=== PATIENT | female | born 1960 | race Caucasian/White ===

== ENCOUNTER → 2020-12-26 16:14 | Outpatient (BNVA) | payer MEDICAID, SELFPAY | PROVIDERS: Visit Provider Nurse Practitioner Psychiatric/Mental Health | DX: F11.99 Opioid use, unspecified with unspecified opioid-induced disorder (principal) | CPT/HCPCS: 99212 ==

== ENCOUNTER → 2021-01-02 15:13 | Outpatient (BNVA) | payer OTHER, SELFPAY | PROVIDERS: PCP Family Medicine; Visit Provider Nurse Practitioner Psychiatric/Mental Health | DX: F11.99 Opioid use, unspecified with unspecified opioid-induced disorder (principal) | CPT/HCPCS: 80305; 99212 ==

== ENCOUNTER → 2021-01-09 09:03 | Outpatient (BNVA) | payer OTHER, SELFPAY | PROVIDERS: PCP Family Medicine; Visit Provider Nurse Practitioner Psychiatric/Mental Health | DX: F11.99 Opioid use, unspecified with unspecified opioid-induced disorder (principal) | CPT/HCPCS: 80305; 99212 ==

== ENCOUNTER → 2021-01-16 09:07 | Outpatient (BNVA) | payer OTHER, SELFPAY | PROVIDERS: PCP Family Medicine; Visit Provider Nurse Practitioner Psychiatric/Mental Health | DX: Z51.81 Encounter for therapeutic drug level monitoring (principal); F11.99 Opioid use, unspecified with unspecified opioid-induced disorder | CPT/HCPCS: 80305; 99212 ==

== ENCOUNTER → 2021-01-30 09:25 | Outpatient (BNVA) | payer OTHER, SELFPAY | PROVIDERS: PCP Family Medicine; Visit Provider Nurse Practitioner Psychiatric/Mental Health | DX: F11.99 Opioid use, unspecified with unspecified opioid-induced disorder (principal) | CPT/HCPCS: 80305; 99212 ==

== ENCOUNTER 2021-02-13 08:48 | Outpatient (REF) | payer OTHER, SELFPAY ==
[2021-02-13 10:22] LABS: Alanine Aminotransferase 16 U/L (0-31); Albumin Level 4.2 g/dL (3.5-5.0); Alkaline Phosphatase 72 U/L (39-117); Anion Gap 12 (12-20); Aspartate Amino Transferase 16 U/L (5-31); Bilirubin Total 0.6 mg/dL (0.0-1.0); Blood Urea Nitrogen 11 mg/dL (9-16); Calcium 9.3 mg/dL (8.4-10.2); Carbon Dioxide 29 mmol/L (22-29); Chloride 106 mmol/L (96-108); Cholesterol 215 mg/dL; Estimated Glomerular Filt Rate > 60; Glucose Fasting 86 mg/dL (60-99); HDL Cholesterol 72 mg/dL; LDL Cholesterol Calculated 131 mg/dl; Potassium 4.7 mmol/L (3.3-5.1); Sodium 142 mmol/L (135-145); Total Protein 6.6 g/dL (6.5-8.0); Triglycerides 63 mg/dL
[2021-02-13 10:32] LABS: TSH reflex Free T4 1.98 uIU/mL (0.32-4.0)
== END 2021-02-13 08:49 | disposition home or self-care (01) ==
LOC: HO.LAB 08:48
PROVIDERS: PCP Family Medicine; Visit Provider Family Medicine
DX: Z00.00 Encounter for general adult medical examination without abnormal findings (principal); F11.99 Opioid use, unspecified with unspecified opioid-induced disorder; K59.03 Drug induced constipation; T40.2X5A Adverse effect of other opioids, initial encounter
CPT/HCPCS: 36415; 80053; 80061; 80305; 84443; 99212

== ENCOUNTER 2021-02-27 08:35 | Outpatient (REF) | payer OTHER, SELFPAY ==
--- NOTE | ~2021-02-27 | MM_ITS ---
EXAMINATION: MM SCREENING DIGITAL BREAST TOMOSYNTHESIS, BILATERAL CLINICAL INFORMATION: Screening. Asymptomatic. Status post left breast lumpectomy and radiation therapy. COMPARISON: Mammography: November 03, 2019 and studies dating back to May 27, 2012 TECHNIQUE: Digital breast tomosynthesis is performed in both the craniocaudal and mediolateral oblique views along with computer-aided detection (CAD). Synthesized 2D images are generated from the tomosynthesis. FINDINGS: There are scattered areas of fibroglandular density (ACR BI-RADS breast composition Category b). No new abnormal dominant mass or suspicious grouping of microcalcifications identified. Architectural distortion is noted within the left breast related to previous lumpectomy and radiation therapy. MM/MM tomosynthesis screening BI IMPRESSION: There are no significant changes from prior study. ASSESSMENT: BI-RADS 2: Benign RECOMMENDATION: Routine annual mammography screening. This patient's information was entered into a reminder system with a target due date for their next mammogram.
== END 2021-02-27 08:36 | disposition home or self-care (01) ==
LOC: HO.MAMMO 08:35
PROVIDERS: PCP Family Medicine; Visit Provider Family Medicine
DX: Z12.31 Encounter for screening mammogram for malignant neoplasm of breast (principal); F11.99 Opioid use, unspecified with unspecified opioid-induced disorder; Z79.899 Other long term (current) drug therapy
CPT/HCPCS: 77063; 77067; 80305; 99212

== ENCOUNTER → 2021-03-12 10:21 | Outpatient (BNVA) | payer OTHER, SELFPAY | PROVIDERS: Visit Provider Nurse Practitioner Psychiatric/Mental Health | DX: Z51.81 Encounter for therapeutic drug level monitoring (principal); F12.90 Cannabis use, unspecified, uncomplicated; F11.90 Opioid use, unspecified, uncomplicated | CPT/HCPCS: 80305; 99211 ==

== ENCOUNTER → 2021-03-27 09:19 | Outpatient (BNVA) | payer OTHER, SELFPAY | PROVIDERS: PCP Family Medicine; Visit Provider Nurse Practitioner Psychiatric/Mental Health | DX: F11.99 Opioid use, unspecified with unspecified opioid-induced disorder (principal); U07.0 Vaping-related disorder; Z51.81 Encounter for therapeutic drug level monitoring | CPT/HCPCS: 80305; 99212 ==

== ENCOUNTER → 2021-04-01 15:04 | Outpatient (BNVA) | payer OTHER, SELFPAY | PROVIDERS: PCP Family Medicine; Referring Provider Family Medicine; Visit Provider Nurse Practitioner Family | DX: Z12.11 Encounter for screening for malignant neoplasm of colon (principal); T40.2X5A Adverse effect of other opioids, initial encounter; K59.03 Drug induced constipation | CPT/HCPCS: 99202 ==

== ENCOUNTER → 2021-04-17 14:13 | Outpatient (BNVA) | payer OTHER, SELFPAY | PROVIDERS: Visit Provider Nurse Practitioner Psychiatric/Mental Health | DX: F11.99 Opioid use, unspecified with unspecified opioid-induced disorder (principal); U07.0 Vaping-related disorder; F17.200 Nicotine dependence, unspecified, uncomplicated; Z96.641 Presence of right artificial hip joint; Z51.81 Encounter for therapeutic drug level monitoring | CPT/HCPCS: 80305; 99212 ==

== ENCOUNTER 2021-05-08 09:48 | Day surgery (SDC) | payer OTHER, SELFPAY ==
[2021-05-02 11:05] VITALS: BMI 26.2
--- NOTE | 2021-05-07 08:59 | HO.ANESPROP2 ---
Documented by User: Leena Brown 05/07/21 09:00 HPI - Anesthesia Eval Consult details Narrative: 61yo F for Colonoscopy suboxone daily PMFSH Active Problems Active Problems: All Active Problems (Updated 05/02/21 @ 11:04 by Katarina Haro) Primary osteoarthritis of right hip (Acute) Anxiety and depression (Acute) Opioid use disorder (Acute) Breast cancer screening by mammogram (Acute) Screening for colon cancer (Acute) Constipation due to opioid therapy (Acute) GERD (gastroesophageal reflux disease) (Acute) Constipation (Acute) Adult general medical exam (Acute) Past Medical History Medical History (Updated 05/02/21 @ 11:04 by Katarina Haro) Anxiety Arthritis Depression GERD (gastroesophageal reflux disease) Opioid abuse Family History Family History Father Colon cancer Mother No problems noted. Paternal Grandmother Breast cancer Paternal Aunt No problems noted. Brother No problems noted. Brother No problems noted. Sister Cervical cancer Son No problems noted. Son No problems noted. Surgical History Surgical History (Updated 05/02/21 @ 11:03 by Katarina Haro) H/O colonoscopy History of lumpectomy of left breast History of right hip replacement History of surgery Ovarian cyst Social History Social History (Updated 03/27/21 @ 09:30 by Yvonne Welch CMA) Housing: House Alcohol intake: current Alcohol intake frequency: a few times a month Patient Tobacco Use Status: Current everyday Tobacco user Tobacco use type: Cigarette e-Cigarette/Vaping Use: Currently Using service: No Current occupational status: unemployed Meds Allergies Allergy/AdvReac Type Severity Reaction Status Date / Time chlorhexidine [CHLORAPREP] Allergy Unknown RASH Verified 04/04/21 12:32 Exam Exam Date and Time: May 07, 2021 0859 Height,Weight and Vital Signs: Height 5 ft 8 in Weight 78.188 kg Assessment and Plan Assessment Anesthesia Assessment: Chart Reviewed Documented by User: Shima Mcdonald MD 05/08/21 11:30 [facility] Past Medical History Medical History (Updated 05/02/21 @ 11:04 by Katarina Haro) Anxiety Arthritis Depression GERD (gastroesophageal reflux disease) Opioid abuse Family History Family History (Reviewed 03/27/21 @ 09:28 by Yvonne Welch [facility]) Father Colon cancer Mother No problems noted. Paternal Grandmother Breast cancer Paternal Aunt No problems noted. Brother No problems noted. Brother No problems noted. Sister Cervical cancer Son No problems noted. Son No problems noted. Surgical History Surgical History (Updated 05/02/21 @ 11:03 by Katarina Haro) H/O colonoscopy History of lumpectomy of left breast History of right hip replacement History of surgery Ovarian cyst History of Problems with Anesthesia: No Social History Social History (Updated 03/27/21 @ 09:30 by Yvonne Welch [facility]) Housing: House Alcohol intake: current Alcohol intake frequency: a few times a month Patient Tobacco Use Status: Current everyday Tobacco user Tobacco use type: Cigarette e-Cigarette/Vaping Use: Currently Using service: No Current occupational status: unemployed Meds Allergies Allergy/AdvReac Type Severity Reaction Status Date / Time chlorhexidine [CHLORAPREP] Allergy Unknown RASH Verified 04/04/21 12:32 Exam Airway Mallampati Class: II TM Dist: >3cm Neck ROM: Full Loose/Missing/Broken Teeth: Yes, Upper and Lower Heart: RRR Lungs: CTA Assessment and Plan Assessment Anesthesia Assessment: Anesthesia Plan Discussed Final Anesthetic Review History of Problems with Anesthesia: No NPO: Yes ASA Class: II Final Preanesthetic Review: Meds/Allgs Chart Reviewed, Consent Obtained/Reviewed and Anes Risks/Benef Reviewed Patient Risk: Low Procedure Risk: Low Anesthetic Plan Anesthetic Plan: MAC: Disposition: Standard PACU
[2021-05-08 10:10] VITALS: BP 110/69; PULSE 57; RESP 16; TEMP 37.2; O2SAT 94
[2021-05-08] MEDS: Lactated Ringers 1,000 ML 100 ML IVCONT (10:26)
--- NOTE | 2021-05-08 11:13 | P.HPSUR_ITS ---
Pre-Procedural Eval Section A Date of Service: 05/08/21 Section B Chief Complaint: screening Details of Present Illness: FH CRC--dad Relevant Family History (Specify if Yes): Yes Relevant Social History: None Present Medications: see Short Stay Collaborative assessment Medical History: Significant History (Anxiety Arthritis Depression GERD (gastroesophageal reflux disease) Opioid abuse) History of Previous Operations: Relevant previous surgery/procedure and date(s) (H/O colonoscopy History of lumpectomy of left breast History of right hip replacement History of surgery Ovarian cyst) Allergies: Allergies Allergy/AdvReac Type Severity Reaction Status Date / Time chlorhexidine [CHLORAPREP] Allergy Unknown RASH Verified 04/04/21 12:32 Review of Systems Sugical H&P ROS: Negative: Constitution, Cardiovascular, Respiratory, Neurologi matti, Psychiatric, Hem-Onc, Allergic/Immunologic, Gastrointestinal, Genitourinary, Musculoskeletal, Integumentary, Endocrine and Eyes/Ears/Nose/Throat Exam Surgical H&P Exam: Normal: HEENT, Normal: Heart, Normal: Lungs, Normal: Extremities, Normal: Abdomen, Normal: Skin and Normal: Neurological Plan Diagnosis/Plan: Unchanged I have reviewed the history and physical and performed a pertinent physical examination on my patient. No changes have occurred unless specified.
--- NOTE | 2021-05-08 11:38 | PM.OP ---
Brief Operative Note Date of Service: 05/08/21 Pre-op diagnosis: colon screening, FH of CRC Post-op diagnosis: same Procedure: see op note Surgeon: Dmitry Sabillon MD Anesthesia: MAC Was an Health Club Attendant used for this Procedure?: No Estimated blood loss (mL): 0 Condition: stable Disposition: PACU
--- NOTE | 2021-05-08 11:38 | W.PM.OPN ---
Operative Note Operative Note Date of Service: 05/08/21 Narrative: Operative Information Procedure Description: Colonoscopy COLONOSCOPY Instrument: Olympus variable stiffness pediatric scope 190L Colonoscopy Monitoring: Vital signs and clinical assessment, continuous EKG monitoring, Pulse oximetry, Carbon Dioxide monitoring and blood pressure monitoring were done throughout the procedure. Colon withdrawal time was 16 minutes. Procedure: The patient was placed in the left lateral decubitis position and pre-procedure medications were administered. After a digital rectal examination of the ano-rectum, the video colonoscope was inserted into the rectum and advanced through the colon to the cecum/TI. The colonoscope was slowly withdrawn in a retrograde panoramic fashion and the colon mucosa was carefully examined including a retroflexed view of the rectum. Findings and interventions are described below. Procedure Difficulty: Findings: Terminal Ileum-normal Cecum:normal Ascending Colon: normal Transverse Colon -normal Descending Colon:normal Sigmoid Colon: few small scattered divertciula Rectum: Retroflexion with small internal hemorrhoids, grade I Anorectum - normal Colon preparation: [place] Bowel Preparation Scale Right colon; 2 Transverse colon: 2 Left colon; 2 (0 = Unprepared colon segment with mucosa not seen due to solid stool that cannot be cleared. 1 = Portion of mucosa of the colon segment seen, but other areas of the colon segment not well seen due to staining, residual stool and/or opaque liquid. 2 = Minor amount of residual staining, small fragments of stool and/or opaque liquid, but mucosa of colon segment seen well. 3 = Entire mucosa of colon segment seen well with no residual staining, small fragments of stool or opaque liquid) Impression and Post Procedure Diagnosis: internal hemorrhoids diverticular disease Plan: High fiber diet leaflet Avoid straining at stool, epsom salts and sitz bath, anusol supps or cream Repeat Colonoscopy in 5 years due to FH of CRC or earlier if clinically indicated Above findings were reviewed with the patient and relevant handouts were provided if indicated.
[2021-05-08 11:42] VITALS: BP 88/53; PULSE 65; RESP 18; TEMP 36.1; O2SAT 95
[2021-05-08 11:57] VITALS: BP 106/64; PULSE 69; RESP 18; TEMP 36.1; O2SAT 97
== END 2021-05-08 12:40 | disposition home or self-care (01) ==
PROVIDERS: PCP Family Medicine; Visit Provider Internal Medicine Gastroenterology
PROC: 0DJD8ZZ Inspection of Lower Intestinal Tract, Via Natural or Artificial Opening Endoscopic (ICD-10-PCS; CPT 45378; principal; 2021-05-08 11:20)
DX: Z12.11 Encounter for screening for malignant neoplasm of colon (principal); Z80.0 Family history of malignant neoplasm of digestive organs; K57.30 Diverticulosis of large intestine without perforation or abscess without bleeding; K64.0 First degree hemorrhoids; K21.9 Gastro-esophageal reflux disease without esophagitis; M16.11 Unilateral primary osteoarthritis, right hip; F11.20 Opioid dependence, uncomplicated; F17.210 Nicotine dependence, cigarettes, uncomplicated; Z79.899 Other long term (current) drug therapy; Z85.3 Personal history of malignant neoplasm of breast
CPT/HCPCS: 45378; 99212

== ENCOUNTER → 2021-05-23 14:30 | Outpatient (BNVA) | payer OTHER, SELFPAY | PROVIDERS: PCP Family Medicine; Visit Provider Nurse Practitioner Family ==

== ENCOUNTER → 2021-06-05 15:06 | Outpatient (BNVA) | payer OTHER, SELFPAY | PROVIDERS: Visit Provider Nurse Practitioner Psychiatric/Mental Health | DX: Z51.81 Encounter for therapeutic drug level monitoring (principal); F11.90 Opioid use, unspecified, uncomplicated | CPT/HCPCS: 80305; 99212 ==

== ENCOUNTER → 2021-07-03 10:41 | Outpatient (BNVA) | payer OTHER, SELFPAY | PROVIDERS: Visit Provider Nurse Practitioner Psychiatric/Mental Health | DX: F11.90 Opioid use, unspecified, uncomplicated (principal) | CPT/HCPCS: 80305; 99212 ==

== ENCOUNTER → 2021-07-25 15:32 | Outpatient (BNVA) | payer OTHER, SELFPAY | PROVIDERS: Visit Provider Nurse Practitioner Family ==

== ENCOUNTER → 2021-07-31 10:32 | Outpatient (BNVA) | payer OTHER, SELFPAY | PROVIDERS: PCP Family Medicine; Visit Provider Nurse Practitioner Psychiatric/Mental Health | DX: F11.99 Opioid use, unspecified with unspecified opioid-induced disorder (principal); K21.9 Gastro-esophageal reflux disease without esophagitis; F41.8 Other specified anxiety disorders; U07.0 Vaping-related disorder; Z88.8 Allergy status to other drugs, medicaments and biological substances; Z51.81 Encounter for therapeutic drug level monitoring | CPT/HCPCS: 80305; 99212 ==

== ENCOUNTER → 2021-09-11 14:26 | Outpatient (BNVA) | payer OTHER, SELFPAY | PROVIDERS: PCP Family Medicine; Visit Provider Nurse Practitioner Psychiatric/Mental Health | DX: F11.20 Opioid dependence, uncomplicated (principal); Z51.81 Encounter for therapeutic drug level monitoring; Z79.899 Other long term (current) drug therapy | CPT/HCPCS: 80305; 99212 ==

== ENCOUNTER → 2021-10-09 09:15 | Outpatient (BNVA) | payer OTHER, SELFPAY | PROVIDERS: PCP Family Medicine; Visit Provider Nurse Practitioner Psychiatric/Mental Health ==

== ENCOUNTER → 2021-10-14 15:21 | Outpatient (BNVA) | payer OTHER, SELFPAY | PROVIDERS: PCP Family Medicine; Referring Provider Family Medicine; Visit Provider Nurse Practitioner Family | DX: K59.03 Drug induced constipation (principal); T40.2X5A Adverse effect of other opioids, initial encounter; K21.9 Gastro-esophageal reflux disease without esophagitis | CPT/HCPCS: 99212 ==

== ENCOUNTER → 2021-11-06 16:04 | Outpatient (BNVA) | payer OTHER, SELFPAY | PROVIDERS: PCP Family Medicine; Visit Provider Nurse Practitioner Psychiatric/Mental Health ==

== ENCOUNTER → 2021-12-04 16:15 | Outpatient (BNVA) | payer OTHER, SELFPAY | PROVIDERS: PCP Family Medicine; Visit Provider Nurse Practitioner Psychiatric/Mental Health ==

== ENCOUNTER 2021-12-09 10:40 | Outpatient (REF) | payer OTHER, SELFPAY | END 2021-12-09 10:41 | disposition home or self-care (01) | LOC: HO.LAB 10:40 | PROVIDERS: Visit Provider Family Medicine | DX: R35.0 Frequency of micturition (principal) | CPT/HCPCS: 87086 ==

== ENCOUNTER 2021-12-09 10:50 | Outpatient (REF) | payer OTHER, SELFPAY ==
[2021-12-09 13:23] LABS: MANUAL DIFF FLAG NO
[2021-12-09 13:26] LABS: Basophils Percent Auto 0.6 % (0-2); Eosinophils Percent Auto 0.6 % (0-4); Hematocrit 42.6 % (37.0-47.0); Hemoglobin 13.9 g/dl (12.0-16.0); Imm Gran Abs Auto 0.01 X10*3/uL (0.00-0.03); Imm Gran Pct Auto 0.2 % (0.0-0.4); Lymphocytes Absolute Auto 1.1 X10*3/uL (1.2-4.9); Lymphocytes Percent Auto 24.4 % (20-40); Mean Corpuscular HGB Conc 32.6 g/dl (31.0-35.0); Mean Corpuscular Hemoglobin 29.6 pg (27.0-33.0); Mean Corpuscular Volume 90.8 fL (80.0-98.0); Mean Platelet Volume 9.1 fL (9.4-12.3); Monocytes Absolute Auto 0.3 X10*3/uL (0.1-1.2); Monocytes Percent Auto 6.3 % (2-11); Neutrophils Absolute Auto 3.2 x10*3/uL (2.0-8.3); Neutrophils Percent Auto 67.9 % (45-73); Platelet Count 319 X10*3/uL (160-400); Red Blood Count 4.69 X10*6/uL (4.20-5.50); Red Cell Distribution Width 12.7 % (11.0-16.0); White Blood Count 4.6 X10*3/uL (4.8-10.8)
[2021-12-09 13:33] LABS: Appearance Urine CLEAR; Color Urine STRAW; Glucose Urine UA NEG (NEG); Leukocyte Esterase Urine NEG (NEG); Nitrite Urine NEG (NEG); Specific Gravity - Urine <= 1.005 (1.005-1.025); Urine Blood NEG (NEG); Urine Ketones NEG (NEG); Urine Protein NEG (NEG-TRACE)
[2021-12-09 13:42] LABS: Alanine Aminotransferase 18 U/L (0-31); Albumin Level 4.5 g/dL (3.5-5.0); Alkaline Phosphatase 69 U/L (39-117); Anion Gap 13 (12-20); Aspartate Amino Transferase 17 U/L (5-31); Bilirubin Total 0.5 mg/dL (0.0-1.0); Blood Urea Nitrogen 10 mg/dL (9-16); Calcium 10.2 mg/dL (8.4-10.2); Carbon Dioxide 30 mmol/L (22-29); Chloride 104 mmol/L (96-108); Estimated Glomerular Filt Rate > 60; Glucose Fasting 99 mg/dL (60-99); Potassium 4.7 mmol/L (3.3-5.1); Sodium 142 mmol/L (135-145); Total Protein 7.2 g/dL (6.5-8.0)
[2021-12-09 13:57] LABS: TSH reflex Free T4 1.86 uIU/mL (0.32-4.0)
== END 2021-12-09 10:51 | disposition home or self-care (01) ==
LOC: HO.WFDLDS 10:50
PROVIDERS: Visit Provider Family Medicine
DX: Z00.00 Encounter for general adult medical examination without abnormal findings (principal); R23.2 Flushing; R35.0 Frequency of micturition
CPT/HCPCS: 36415; 80053; 81003; 84443; 85025

== ENCOUNTER → 2022-01-15 14:56 | Outpatient (BNVA) | payer OTHER, SELFPAY | PROVIDERS: PCP Family Medicine; Visit Provider Nurse Practitioner Psychiatric/Mental Health | DX: F11.20 Opioid dependence, uncomplicated (principal) | CPT/HCPCS: 80305; 99212 ==

== ENCOUNTER → 2022-02-12 14:20 | Outpatient (BNVA) | payer OTHER, SELFPAY | PROVIDERS: PCP Family Medicine; Visit Provider Nurse Practitioner Psychiatric/Mental Health | DX: Z51.81 Encounter for therapeutic drug level monitoring (principal); F11.20 Opioid dependence, uncomplicated | CPT/HCPCS: 80305; 99212 ==

== ENCOUNTER → 2022-03-19 15:51 | Outpatient (BNVA) | payer OTHER, SELFPAY | PROVIDERS: PCP Family Medicine; Visit Provider Nurse Practitioner Psychiatric/Mental Health | DX: Z51.81 Encounter for therapeutic drug level monitoring (principal); F11.20 Opioid dependence, uncomplicated | CPT/HCPCS: 80305; 99212 ==

== ENCOUNTER → 2022-07-27 13:28 | Outpatient (BNVA) | payer OTHER, SELFPAY | PROVIDERS: PCP Family Medicine; Visit Provider Nurse Practitioner Psychiatric/Mental Health | DX: F11.20 Opioid dependence, uncomplicated (principal) | CPT/HCPCS: 80305; 99212 ==

== ENCOUNTER → 2022-09-08 10:56 | Outpatient (BNVA) | payer OTHER, SELFPAY | PROVIDERS: PCP Family Medicine; Visit Provider Nurse Practitioner Psychiatric/Mental Health | DX: F11.20 Opioid dependence, uncomplicated (principal) | CPT/HCPCS: 80305; 99212 ==

== ENCOUNTER → 2022-11-03 10:49 | Outpatient (BNVA) | payer OTHER, SELFPAY | PROVIDERS: PCP Family Medicine; Visit Provider Nurse Practitioner Psychiatric/Mental Health | DX: F11.20 Opioid dependence, uncomplicated (principal) | CPT/HCPCS: 99212 ==

== ENCOUNTER 2022-11-12 08:57 | Outpatient (REF) | payer OTHER, SELFPAY ==
[2022-11-12 09:10] LABS: MANUAL DIFF FLAG NO
[2022-11-12 09:48] LABS: Basophils Percent Auto 0.8 % (0-2); Eosinophils Absolute Auto 0.1 X10*3/uL (0.0-0.4); Eosinophils Percent Auto 2.5 % (0-4); Hemoglobin 13.3 g/dl (12.0-16.0); Imm Gran Abs Auto 0.01 X10*3/uL (0.00-0.03); Imm Gran Pct Auto 0.3 % (0.0-0.4); Lymphocytes Absolute Auto 1.2 X10*3/uL (1.2-4.9); Lymphocytes Percent Auto 31.9 % (20-40); Mean Corpuscular HGB Conc 32.4 g/dl (31.0-35.0); Mean Corpuscular Hemoglobin 29.3 pg (27.0-33.0); Mean Corpuscular Volume 90.3 fL (80.0-98.0); Mean Platelet Volume 8.8 fL (9.4-12.3); Monocytes Absolute Auto 0.3 X10*3/uL (0.1-1.2); Monocytes Percent Auto 7.8 % (2-11); Neutrophils Percent Auto 56.7 % (45-73); Platelet Count 300 X10*3/uL (160-400); Red Blood Count 4.54 X10*6/uL (4.20-5.50); Red Cell Distribution Width 12.7 % (11.0-16.0); White Blood Count 3.6 X10*3/uL (4.8-10.8)
[2022-11-12 10:30] LABS: Appearance Urine Clear; Color Urine Yellow; Glucose Urine UA Negative (Negative); Leukocyte Esterase Urine Negative (Negative); Nitrite Urine Negative (Negative); Urine Blood Negative (Negative); Urine Ketones Negative (Negative); Urine Protein Negative (Neg-Trace)
[2022-11-12 11:11] LABS: Alanine Aminotransferase 25 U/L (0-31); Albumin Level 4.1 g/dL (3.5-5.0); Alkaline Phosphatase 81 U/L (39-117); Anion Gap 14 (12-20); Aspartate Amino Transferase 20 U/L (5-31); Bilirubin Total 0.7 mg/dL (0.0-1.0); Blood Urea Nitrogen 15 mg/dL (9-16); Calcium 9.2 mg/dL (8.4-10.2); Carbon Dioxide 29 mmol/L (22-29); Chloride 106 mmol/L (96-108); Cholesterol 235 mg/dL; Estimated Glomerular Filt Rate > 60; Glucose Fasting 90 mg/dL (60-99); HDL Cholesterol 77 mg/dL; LDL Cholesterol Calculated 141 mg/dl; Potassium 4.7 mmol/L (3.3-5.1); Sodium 144 mmol/L (135-145); TSH reflex Free T4 2.14 uIU/mL (0.32-4.0); Total Protein 6.5 g/dL (6.5-8.0); Triglycerides 87 mg/dL
[2022-11-12 11:41] LABS: Creatinine Urine 199.38 mg/dL
== END 2022-11-12 08:58 | disposition home or self-care (01) ==
LOC: HO.LAB 08:57
PROVIDERS: PCP Family Medicine; Visit Provider Family Medicine
DX: Z00.00 Encounter for general adult medical examination without abnormal findings (principal); I10 Essential (primary) hypertension
CPT/HCPCS: 36415; 80053; 80061; 81003; 82043; 84443; 85025

== ENCOUNTER 2022-11-18 11:35 | Outpatient (REF) | payer OTHER, SELFPAY ==
--- NOTE | ~2022-11-18 | MM_ITS ---
EXAMINATION: MM SCREENING DIGITAL BREAST TOMOSYNTHESIS, BILATERAL CLINICAL INFORMATION: Screening. Asymptomatic. Left IDC status post lumpectomy and radiation, 2011. COMPARISON: Mammography: 02/27/2021, 11/03/2019, 10/28/2018, 10/08/2017, 11/22/2015, 11/09/2014 TECHNIQUE: Digital breast tomosynthesis is performed in both the craniocaudal and mediolateral oblique views along with computer-aided detection (CAD). Synthesized 2D images are generated from the tomosynthesis. FINDINGS: There are scattered areas of fibroglandular density (ACR BI-RADS breast composition Category b). There are no significant masses, abnormal calcifications, or other abnormalities. There are chronic post therapy changes on the left with reduced breast size table scarring. There is no developing density or interval architectural abnormality. No significant changes from prior studies. MM/MM tomosynthesis screening BI IMPRESSION: -No mammographic evidence of malignancy. -Post therapy changes left breast. ASSESSMENT: BI-RADS 2: Benign RECOMMENDATION: Routine annual mammography screening. This patient's information was entered into a reminder system with a target due date for their next mammogram.
== END 2022-11-18 11:36 | disposition home or self-care (01) ==
LOC: HO.MAMMO 11:35
PROVIDERS: PCP Family Medicine; Visit Provider Family Medicine
DX: Z12.31 Encounter for screening mammogram for malignant neoplasm of breast (principal)
CPT/HCPCS: 77063; 77067

== ENCOUNTER → 2022-12-30 10:54 | Outpatient (BNVA) | payer OTHER, SELFPAY | PROVIDERS: PCP Family Medicine; Visit Provider Nurse Practitioner Psychiatric/Mental Health | DX: Z51.81 Encounter for therapeutic drug level monitoring (principal); F11.20 Opioid dependence, uncomplicated | CPT/HCPCS: 99212 ==

== ENCOUNTER → 2023-03-11 11:18 | Outpatient (BNVA) | payer OTHER, SELFPAY | PROVIDERS: PCP Family Medicine; Visit Provider Nurse Practitioner Psychiatric/Mental Health | DX: Z51.81 Encounter for therapeutic drug level monitoring (principal); F11.20 Opioid dependence, uncomplicated | CPT/HCPCS: 99212 ==

== ENCOUNTER 2023-04-26 10:37 | Outpatient (AMB) | payer OTHER, SELFPAY ==
--- NOTE | 2023-04-26 10:43 | A.OFFVIS_ITS ---
Intake Vital Signs 04/26/23 10:48 Height 5 ft 11 in Weight 187 lb 13.341 oz BMI 26.2 BP 118/74 Blood Pressure Location Lt brachial Position Sitting Pulse 78 Intake Visit Reasons: follow up/ post op Intake Note: Silvia presents in office as a est.patient for a colonoscopy screening PT CC: pt reports having constipation pt denies any other GI Issues Vice President Of Customer Service Required: No Accompanied by: Self / Same As Patient Allergies chlorhexidine [CHLORAPREP] Allergy (Unknown, Verified 04/26/23 10:48) RASH HPI follow up/ post op HPI Details LAST VISIT 10/14/2021 1) Constipation due to opioid therapy: ?Code(s): K59.03 - Drug induced constipation; T40.2X5A - Adverse effect of other opioids, initial encounter ?Plan: Patient continues to be constipated.? I will start her on Movantik.? Patient is on Suboxone therapy.? Patient was encouraged to increase fluid intake, exercise and was encouraged to increase fruits and vegetables in her diet. (2) GERD (gastroesophageal reflux disease): ?Code(s): K21.9 - Gastro-esophageal reflux disease without esophagitis ?Qualifiers: ?Esophagitis presence:?esophagitis presence not specified? Qualified Code(s):?K21.9 - Gastro-esophageal reflux disease without esophagitis ?Plan: Occasional acid reflux most likely related to the fact that she is constipated.? Patient also reports that certain food makes her reflux worse.? Patient will avoid dietary triggers.? Avoid late night snacking, upright for 2-3 hours after meals.? Hopefully when patient will be able to move her bowels she will feel better.? We will reassess next visit.? Patient will call me sooner if her symptoms will get worse or if she develops any additional GI concerning symptoms. (3) Constipation: ?Code(s): K59.00 - Constipation, unspecified ?Qualifiers: ?Constipation type:?drug induced constipation? Qualified Code(s):?K59.03 - Drug induced constipation ?Plan: Drug-induced constipation due to patient's Suboxone therapy.? Will start her on Movantik.? Patient will call me in 2 weeks if this not going to be effective.? I will add docusate sodium.? Patient might need to take extra magnesium citrate if this not going to be working for her.? I will see her in 3 months, sooner on as needed basis.? Patient is agreeable to this plan and verbalizes understanding of instructions.? She was given the opportunity to ask questions and all questions answered.? TODAY'S VISIT Patient is here today thinking that she is due for colonoscopy screening. Patient had colonoscopy in May of 2021 and is not due for colonoscopy till May of 2026. Patient had normal colonoscopy, however due to family history of CRC patient should have colonoscopy every 5 years. Patient denies any melena, hematochezia, unintentional weight loss or ribbon like stools. Patient is moving her bowels better now. Patient is exercising every day and drinking plenty fluids. States that only occasionally she is constipated and if she does she takes [id number] medication to help her with that. Patient denies dyspepsia, dysphagia or odynophagia. Occasional acid reflux after drinking coffee in the morning. Patient states that she uses Tums on as needed basis. Patient denies any other GI concerning symptoms. PFSH Medical History Anxiety Arthritis Depression GERD (gastroesophageal reflux disease) Opioid abuse Surgical History H/O colonoscopy History of lumpectomy of left breast History of right hip replacement History of surgery Ovarian cyst Family History Father Colon cancer Mother No problems noted. Paternal Grandmother Breast cancer Paternal Aunt No problems noted. Brother No problems noted. Brother No problems noted. Sister Cervical cancer Son Substance use disorder Son No problems noted. Social History Housing: House Alcohol intake: current Alcohol intake frequency: a few times a month Patient Tobacco Use Status: Never used Tobacco e-Cigarette/Vaping Use: Currently Using Second Hand Smoke Exposure: No service: No Current occupational status: unemployed Current occupational exposures/hazards: No Cognitive needs: No Hearing needs: No Vision needs: No Review of Systems Const Denies weight gain and Denies weight loss ENT Reports no additional complaints, Denies dysphagia and Denies odynophagia Card Reports no additional complaints Resp Reports no additional complaints GI Denies abdominal pain, Denies belching, Denies melena, Denies bloating, Reports constipation, Denies dysphagia, Denies excessive flatus, Denies dyspepsia, Denies heartburn, Denies diarrhea, Denies loose stools, Denies nausea, Denies odynophagia and Denies vomiting Reports no additional complaints Musc Reports no additional complaints Neuro Reports no additional complaints Psych Reports no additional complaints Endo Reports no additional complaints Physical Exam Vital Signs: Last Vital Signs Pulse 78 04/26/23 10:48 BP 118/74 04/26/23 10:48 BMI result Body Mass Index 26.2 Const General: healthy appearing, no acute distress and well developed Nutritional Appearance: well nourished Orientation/consciousness: patient oriented x3 HEENT Head: Yes normal to inspection, Yes normocephalic and Yes atraumatic Face and sinus: Yes normal facial exam Mouth: Normal oral and palatal mucosa present Throat: Yes posterior oropharynx normal, Yes tonsils normal and Yes uvula midline Eyes General: appearance normal, both eyes and all related structures Neck Neck: Yes normal visual inspection, Yes full ROM and Yes trachea midline Thyroid: Thyroid normal Resp Effort & Inspection: normal respiratory effort, able to speak in complete sentences, no tracheal deviation and symmetric chest movement Auscultation: clear to auscultation bilaterally Cardio Rate: regular rate Heart sounds: S1 normal heart sound present and S2 normal heart sound present GI Inspection: Yes normal to inspection and No distended Palpation (GI): Soft to palpation, not firm, nontender and No hepatosplenomegaly present Auscultation: normal bowel sounds General: Yes no CVA tenderness Back/Spine/Pelvis Back: no CVA tenderness Skin General skin exam: elasticity normal, turgor normal and dry skin Neuro General: patient oriented x3 Psych Appearance: grossly normal Mental Status: mental status grossly normal Speech and movement: Normal speech and movement present Affect: normal affect Assessment & Plan Assessment & Plan (1) Constipation: Code(s): K59.00 - Constipation, unspecified Qualifiers: Constipation type: drug induced constipation Qualified Code(s): K59.03 - Drug induced constipation Plan: Continue high-fiber diet. Continue exercise. May use [id number] medications on as needed basis (2) GERD (gastroesophageal reflux disease): Code(s): K21.9 - Gastro-esophageal reflux disease without esophagitis Qualifiers: Esophagitis presence: esophagitis presence not specified Qualified Code(s): K21.9 - Gastro-esophageal reflux disease without esophagitis Plan: Occasional acid reflux, however patient states that usually is after drinking coffee. Patient will decrease the amount of coffee that she is drinking. Can use [id number] Pepcid or on as needed basis. Patient will follow-up with our office on as-needed basis. She is agreeable to this plan and verbalizes understanding of instructions. She was given the opportunity to ask questions and all questions answered. Thank you for allowing me to participate in her care Coding Level of Care Code Est Pt Level 3 (77908) Diagnoses Constipation K59.03 Constipation type: drug induced constipation GERD (gastroesophageal reflux disease) K21.9 Esophagitis presence: esophagitis presence not specified Time Spent (min) 25 Comment 15 minutes spent with patient and additional 10 minutes spent reviewing her records
[2023-04-26 10:48] VITALS: BP 118/74; PULSE 78; BMI 26.2
== END 2023-04-26 11:26 | disposition home or self-care (01) ==
PROVIDERS: PCP Family Medicine; Visit Provider Nurse Practitioner Family
DX: K59.03 Drug induced constipation (principal); K21.9 Gastro-esophageal reflux disease without esophagitis
CPT/HCPCS: 99213

== ENCOUNTER → 2023-04-26 10:37 | Outpatient (BNVA) | payer OTHER, SELFPAY | PROVIDERS: PCP Family Medicine; Visit Provider Nurse Practitioner Family | DX: K59.03 Drug induced constipation (principal); K21.9 Gastro-esophageal reflux disease without esophagitis | CPT/HCPCS: 99212 ==

== ENCOUNTER 2023-04-30 14:21 | Outpatient (AMB) | payer OTHER, SELFPAY ==
--- NOTE | 2023-04-30 14:21 | A.OFFVIS_ITS ---
Intake Vital Signs 04/30/23 14:25 BP 128/82 Blood Pressure Location Lt radial Position Sitting Pulse 74 Pulse Source Pulse Oximeter Pulse Oximetry (%) 95 Oxygen Delivery Method Room Air Intake Visit Reasons: MAT Visit Intake Note: the patient presents for a mat visit Landscaping Specialist Required: No Allergies chlorhexidine [CHLORAPREP] Allergy (Unknown, Verified 04/26/23 10:48) RASH Do you need a note to return to daycare/school/sports/work: No HPI MAT Visit HPI Details Pt presents for OUD treatment follow up Currently being prescribed Suboxone 2mg BID Denies any side effects related to medication Feels better with increase in dose. Sleeping better, less irritable and less restless. PFSH Medical History Anxiety Arthritis Depression GERD (gastroesophageal reflux disease) Opioid abuse Surgical History H/O colonoscopy History of lumpectomy of left breast History of right hip replacement History of surgery Ovarian cyst Family History Father Colon cancer Mother No problems noted. Paternal Grandmother Breast cancer Paternal Aunt No problems noted. Brother No problems noted. Brother No problems noted. Sister Cervical cancer Son Substance use disorder Son No problems noted. Social History Housing: House Alcohol intake: current Alcohol intake frequency: a few times a month Patient Tobacco Use Status: Never used Tobacco e-Cigarette/Vaping Use: Currently Using Second Hand Smoke Exposure: No service: No Current occupational status: unemployed Current occupational exposures/hazards: No Cognitive needs: No Hearing needs: No Vision needs: No Review of Systems Const Reports as per HPI and Reports no additional complaints Physical Exam Vital Signs: Last Vital Signs Pulse 74 04/30/23 14:25 BP 128/82 04/30/23 14:25 Pulse Ox 95 04/30/23 14:25 Oxygen Delivery Method Room Air 04/30/23 14:25 Const General: cooperative, healthy appearing, comfortable, no acute distress, well developed, alert, awake and well groomed Nutritional Appearance: average body habitus and well nourished Orientation/consciousness: patient oriented x3 Limitations: no limitations Neuro General: patient oriented x3 Psych Appearance: grossly normal Mental Status: mental status grossly normal Speech and movement: Normal speech and movement present Affect: normal affect Attitude: cooperative Thought process: Normal thought process present Insight: Good insight present (Psych) Judgement: Good judgement present (Psych) Assessment & Plan Assessment & Plan (1) Opioid dependence: Code(s): F11.20 - Opioid dependence, uncomplicated Plan: * continue suboxone at current dose * follow up 2 months Coding Level of Care Code Est Pt Level 3 (18995) Diagnoses Opioid dependence F11.20
[2023-04-30 14:25] VITALS: BP 128/82; PULSE 74; O2SAT 95
== END 2023-04-30 14:46 | disposition home or self-care (01) ==
LOC: HO.HCC 14:21
PROVIDERS: PCP Family Medicine; Visit Provider Nurse Practitioner Psychiatric/Mental Health
DX: F11.20 Opioid dependence, uncomplicated (principal)
CPT/HCPCS: 99213

== ENCOUNTER → 2023-04-30 14:21 | Outpatient (BNVA) | payer OTHER, SELFPAY | PROVIDERS: PCP Family Medicine; Visit Provider Nurse Practitioner Psychiatric/Mental Health | DX: Z51.81 Encounter for therapeutic drug level monitoring (principal); F11.20 Opioid dependence, uncomplicated | CPT/HCPCS: 99212 ==

== ENCOUNTER 2023-05-18 09:46 | Outpatient (AMB) | payer OTHER, SELFPAY ==
--- NOTE | 2023-05-18 09:55 | A.OFFPC_ITS ---
Vital Signs 05/18/23 09:56 Height 5 ft 11 in Weight 187 lb BMI 26.1 BP 128/68 Blood Pressure Location Lt brachial Position Sitting Pulse 83 Pulse Source Pulse Oximeter Pulse Oximetry (%) 98 Oxygen Delivery Method Room Air Intake Visit Reasons: f/u anxiety/depression Intake Note: Patient is here to follow up on axiety and depression. Allergies chlorhexidine [CHLORAPREP] Allergy (Unknown, Verified 05/18/23 09:58) RASH Medication List - Last Reconciled 05/18/23 by Bj Esqueda MD aripiprazole 5 mg PO BEDTIME 30 days buprenorphine-naloxone 2-0.5 mg (Suboxone) 1 film sublingual BID clonazepam 2 mg (2 x 1 mg) PO DAILY 28 days COVID-19 antigen test ([facility] COVID-19 Ag Self Test kit) As directed docusate sodium 100 mg PO DAILY naloxone 4 mg/actuation (Narcan) 4 mg intranasal Q2M PRN naproxen 500 mg PO Q12H venlafaxine 100 mg PO BID Tobacco use date assessed: 05/18/23 Dental Screening Dental Screen Date: 05/18/23 Did you have a dental visit in the last 12 months?: Yes Did you have a dental problem in the last 6 months where you did not have access to dental care?: No Was dental information given to patient?: No HPI f/u anxiety/depression HPI Details 63 y/o female presents to f/u anxiety/depression. Followed by Naomi Vaz. Currently prescribed Suboxone 2mg b.i.d. She had felt better with increase in dose. Has been sleeping better, less irritable. Labs were drawn 11/12/22. Reviewed labs with pt. Triglycerides 87. TC 235. LDL 141. HDL 77. She notes she does get her exercise. [facility] Medical History Anxiety Arthritis Depression GERD (gastroesophageal reflux disease) Opioid abuse Surgical History H/O colonoscopy History of lumpectomy of left breast History of right hip replacement History of surgery Ovarian cyst Family History Father Colon cancer Mother No problems noted. Paternal Grandmother Breast cancer Paternal Aunt No problems noted. Brother No problems noted. Brother No problems noted. Sister Cervical cancer Son Substance use disorder Son No problems noted. Social History Housing: House Alcohol intake: current Alcohol intake frequency: a few times a month Patient Tobacco Use Status: Never used Tobacco e-Cigarette/Vaping Use: Currently Using Second Hand Smoke Exposure: No service: No Current occupational status: unemployed Current occupational exposures/hazards: No Cognitive needs: No Hearing needs: No Vision needs: No Questionnaire PHQ-9 Over the last 2 weeks, how often have you been bothered by any of the following problems? 1. Little interest or pleasure in doing things: not at all 2. Feeling down, depressed, or hopeless: not at all 3. Trouble falling or staying asleep, or sleeping too much: not at all 4. Feeling tired or having little energy: not at all 5. Poor appetite or overeating: not at all 6. Feeling bad about yourself - or that you are a failure or have let yourself or your family down: several days 7. Trouble concentrating on things, such as reading the newspaper or watching television: several days 8. Moving or speaking so slowly that other people could have noticed. Or the opposite - being so fidgety or restless that you have been moving around a lot more than usual: not at all 9. Thoughts that you would be better off or of hurting yourself in some way: not at all Total score: 2 Depression Screening Interpretation: Negative [id number] - PHQ-9 Billing: Yes Source: Developed by Drs. Maverick Mercedes, Rosi Desai, Manny Cruz and colleagues, with an educational adriane from [employer]. Thrive Questionnaire Date Thrive assessed: 11/02/22 AYUSH-7 AMB Questionnaire AYUSH-7 Date AYUSH - 7 assessed: 11/02/22 Feeling nervous, anxious, or on edge: 1 = Several days Not being able to stop or control worryin = Several days Worrying too much about different things: 1 = Several days Trouble relaxin = Several days Being so restless that it is hard to sit still: 0 = Not at all Becoming easily annoyed or irritable: 0 = Not at all Feeling afraid as if something awful might happen: 1 = Several days Total AYUSH-7 score (0-4 normal; 5-9 mild; 10-14 moderate; 15-21 severe): 5 Source: Developed by Drs. Maverick Mercedes, Rosi Desai, Manny Cruz and colleagues, with an educational adriane from [employer]. AYUSH-7 Assessment Billing AYUSH-7 Assessment Tool: AYUSH-7 Assessment [id number] Review of Systems Const Denies chills, Denies fatigue, Denies fever(s), Denies headache(s) and Denies weakness ENT Denies dizziness and Denies headache(s) Card Denies chest pain, Denies lightheadedness, Denies dyspnea and Denies other (Palpitations) Resp Denies cough, Denies dyspnea, Denies wheezing and Denies other ( shortness of breath) Musc Denies numbness and Denies tingling Neuro Denies dizziness, Denies headache(s), Denies numbness, Denies tingling, Denies paresthesias and Denies weakness Psych Reports anxiety and Reports depression Endo Denies fatigue Aller/Immun Denies wheezing Physical exam (Primary Care) Vital Signs: Last Vital Signs Pulse 83 05/18/23 09:56 BP 128/68 05/18/23 09:56 Pulse Ox 98 05/18/23 09:56 Oxygen Delivery Method Room Air 05/18/23 09:56 BMI result Body Mass Index 26.1 Tobacco/Smoking Status: Tobacco use Status Tobacco use date assessed 05/18/23 05/18/23 10:05 Patient Tobacco Use Status Never used Tobacco 05/18/23 10:05 Tobacco use type 04/22/23 14:41 e-Cigarette/Vaping Use Currently Using 05/18/23 10:05 PHQ-9: PHQ-9 Score PHQ-9: Total score 2 05/18/23 10:26 Depression Screening Interpretation: Negative Thrive Assessment: Date of Thrive Assessment Date Thrive assessed 11/02/22 05/18/23 10:05 Const General: no acute distress and well developed Nutritional Appearance: well nourished Orientation/consciousness: patient oriented x3 HENMT Head: Yes normocephalic and Yes atraumatic Eyes General: appearance normal, both eyes and all related structures Pupils: Equal, round and reactive pupils present EOM: EOMs intact bilaterally Resp Effort & Inspection: normal respiratory effort Auscultation: clear to auscultation bilaterally Cardio Rate: regular rate Rhythm: regular rhythm Heart sounds: S1 normal heart sound present, S2 normal heart sound present, no gallops, no murmurs and no rubs Neuro General: patient oriented x3 and gait normal Cranial nerves: Yes Equal, round and reactive pupils present Psych Affect: normal affect Assessment and Plan Assessment & Plan (1) Anxiety and depression: Code(s): F41.9 - Anxiety disorder, unspecified; F32.9 - Major depressive disorder, single episode, unspecified Plan: Anxiety and depression are well controlled today on current regimen Of Abilify, venlafaxine and clonazepam No medication changes are recommended today. I advised her to bring her pill bottle to her next visit for a count Will also check urine drug screen at that time - she is on buprenorphine which will be an expected value as well as her clonazepam. (2) Opioid dependence: Code(s): F11.20 - Opioid dependence, uncomplicated Plan: Followed by Naomi Vaz Continue buprenorphine therapy and [place] [facility] [place] [facility] [place]3) Hypercholesterolemia: Code(s): E78.00 - Pure hypercholesterolemia, unspecified Plan: HDL is desirably high and ratios are good Encouraged a diet lower in saturated fats and cholesterol but not starting a medication today. Coding Level of Care Code Est Pt Level 3 (16910) Diagnoses Anxiety and depression F41.9; F32.9 Opioid dependence F11.20 Hypercholesterolemia E78.00 Additional Codes AYUSH-7 Assessment Billing - AYUSH-7 Assessment Tool: AYUSH-7 Assessment [id number] ([id number])
[2023-05-18 09:56] VITALS: BP 128/68; PULSE 83; O2SAT 98; BMI 26.1
== END 2023-05-18 10:37 | disposition home or self-care (01) ==
PROVIDERS: PCP Family Medicine; Visit Provider Family Medicine
DX: F41.9 Anxiety disorder, unspecified (principal); F32.9 Major depressive disorder, single episode, unspecified; F11.20 Opioid dependence, uncomplicated; E78.00 Pure hypercholesterolemia, unspecified
CPT/HCPCS: 99213

== ENCOUNTER 2023-06-29 08:54 | Outpatient (AMB) | payer OTHER, SELFPAY ==
--- NOTE | 2023-06-29 08:55 | A.OFFVIS_ITS ---
Intake Vital Signs 06/29/23 09:04 BP 126/82 Blood Pressure Location Lt radial Position Sitting Pulse 92 Pulse Source Pulse Oximeter Pulse Oximetry (%) 96 Oxygen Delivery Method Room Air Intake Visit Reasons: MAT Visit Intake Note: the patient presents for a mat visit Head Athletic Trainer Required: No Allergies chlorhexidine [CHLORAPREP] Allergy (Unknown, Verified 06/29/23 09:01) RASH Do you need a note to return to daycare/school/sports/work: No HPI MAT Visit HPI Details Pt presents for OUD treatment follow up Currently being prescribed SUboxone 2mg BID Denies any side effects related to medication Tolerating dose Discussed plans to move to [place] within the next year [facility] Medical History Anxiety Arthritis Depression GERD (gastroesophageal reflux disease) Opioid abuse Surgical History H/O colonoscopy History of lumpectomy of left breast History of right hip replacement History of surgery Ovarian cyst Family History Father Colon cancer Mother No problems noted. Paternal Grandmother Breast cancer Paternal Aunt No problems noted. Brother No problems noted. Brother No problems noted. Sister Cervical cancer Son Substance use disorder Son No problems noted. Social History Housing: House Alcohol intake: current Alcohol intake frequency: a few times a month Patient Tobacco Use Status: Never used Tobacco e-Cigarette/Vaping Use: Currently Using Second Hand Smoke Exposure: No service: No Current occupational status: unemployed Current occupational exposures/hazards: No Cognitive needs: No Hearing needs: No Vision needs: No Review of Systems Const Reports as per HPI and Reports no additional complaints Physical Exam Vital Signs: Last Vital Signs Pulse 92 06/29/23 09:04 BP 126/82 06/29/23 09:04 Pulse Ox 96 06/29/23 09:04 Oxygen Delivery Method Room Air 06/29/23 09:04 Const General: cooperative, healthy appearing, comfortable, no acute distress, well developed, alert, awake and well groomed Nutritional Appearance: average body habitus and well nourished Orientation/consciousness: patient oriented x3 Limitations: no limitations Neuro General: patient oriented x3 Psych Appearance: grossly normal Mental Status: mental status grossly normal Speech and movement: Normal speech and movement present Affect: normal affect Attitude: cooperative Thought process: Normal thought process present Insight: Good insight present (Psych) Judgement: Good judgement present (Psych) Assessment & Plan Assessment & Plan (1) Opioid dependence: Code(s): F11.20 - Opioid dependence, uncomplicated Qualifiers: Complication of substance-induced condition: uncomplicated Plan: * continue suboxone at current dose * follow up 2 months Medications: Refilled buprenorphine-naloxone 2-0.5 mg (Suboxone) 1 film sublingual BID 60 ea 1RF Coding Level of Care Code Est Pt Level 3 (54687) Diagnoses Opioid dependence F11.20 Complication of substance-induced condition: uncomplicated
[2023-06-29 09:04] VITALS: BP 126/82; PULSE 92; O2SAT 96
== END 2023-06-29 09:21 | disposition home or self-care (01) ==
LOC: HO.HCC 08:54
PROVIDERS: PCP Family Medicine; Visit Provider Nurse Practitioner Psychiatric/Mental Health
DX: F11.20 Opioid dependence, uncomplicated (principal)
CPT/HCPCS: 99213

== ENCOUNTER → 2023-06-29 08:54 | Outpatient (BNVA) | payer OTHER, SELFPAY | PROVIDERS: PCP Family Medicine; Visit Provider Nurse Practitioner Psychiatric/Mental Health | DX: F11.20 Opioid dependence, uncomplicated (principal); U07.0 Vaping-related disorder; Z51.81 Encounter for therapeutic drug level monitoring; Z79.899 Other long term (current) drug therapy | CPT/HCPCS: 99212 ==

== ENCOUNTER 2023-08-25 14:52 | Outpatient (AMB) | payer OTHER, SELFPAY ==
--- NOTE | 2023-08-25 14:54 | MHC.OFFVIS ---
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 Paternal Grandmother Breast cancer Paternal Aunt No problems noted. Brother No problems noted. Brother No problems noted. Sister Cervical cancer Son Substance use disorder Son No problems noted. Housing: House Alcohol intake: current Alcohol intake frequency: a few times a month Patient Tobacco Use Status: Never used Tobacco e-Cigarette/Vaping Use: Currently Using Second Hand Smoke Exposure: No service: No Current occupational status: unemployed Current occupational exposures/hazards: No Cognitive needs: No Hearing needs: No Vision needs: No Review of Systems Const Reports as per HPI and Reports no additional complaints Physical Exam Vital Signs: Last Vital Signs Pulse 70 08/25/23 15:03 BP 130/78 08/25/23 15:03 Pulse Ox 97 08/25/23 15:03 Oxygen Delivery Method Room Air 08/25/23 15:03 Const General: cooperative, healthy appearing, comfortable, no acute distress, well developed, alert, awake and well groomed Nutritional Appearance: average body habitus and well nourished Orientation/consciousness: patient oriented x3 Limitations: no limitations Neuro General: patient oriented x3 Psych Appearance: grossly normal Mental Status: mental status grossly normal Speech and movement: Normal speech and movement present Affect: normal affect Attitude: cooperative Thought process: Normal thought process present Insight: Good insight present (Psych) Judgement: Good judgement present (Psych) Assessment & Plan Assessment & Plan (1) Opioid dependence: Code(s): F11.20 - Opioid dependence, uncomplicated Qualifiers: Complication of substance-induced condition: uncomplicated Plan: continue suboxone at current dose follow up 2 months Coding Level of Care Code Est Pt Level 3 (69696) Diagnoses Opioid dependence F11.20 Complication of substance-induced condition: uncomplicated
[2023-08-25 15:03] VITALS: BP 130/78; PULSE 70; O2SAT 97
== END 2023-08-25 15:57 | disposition home or self-care (01) ==
PROVIDERS: PCP Family Medicine; Visit Provider Nurse Practitioner Psychiatric/Mental Health
DX: F11.20 Opioid dependence, uncomplicated (principal)
CPT/HCPCS: 99213

== ENCOUNTER → 2023-08-25 14:52 | Outpatient (BNVA) | payer OTHER, SELFPAY | PROVIDERS: PCP Family Medicine; Visit Provider Nurse Practitioner Psychiatric/Mental Health | DX: F11.20 Opioid dependence, uncomplicated (principal); Z51.81 Encounter for therapeutic drug level monitoring; Z79.899 Other long term (current) drug therapy | CPT/HCPCS: 99212 ==

== ENCOUNTER 2023-10-01 14:20 | Outpatient (AMB) | payer OTHER, SELFPAY ==
--- NOTE | 2023-10-01 14:30 | MHC.PC.OV ---
Vital Signs 10/01/23 14:31 Height 5 ft 11 in BMI Reason not done Patient refused/unable BP 128/76 Blood Pressure Location Lt brachial Position Sitting Pulse 67 Pulse Source Pulse Oximeter Pulse Oximetry (%) 100 Oxygen Delivery Method Room Air Intake Visit Reasons: Follow up anxiety Intake Note: Patient is here to follow up on anxiety. Allergies chlorhexidine [CHLORAPREP] Allergy (Unknown, Verified 10/01/23 14:35) RASH Tobacco use date assessed: 10/01/23 HPI Follow up anxiety HPI Details 63 y/o female presents to f/u anxiety and depression. Pt seemed well controlled last office visit and no med changes were made. On Abilify, venlafaxine and clonazepam. AYUSH-7 score 11 today, PHQ-9 5. She feels a bit less stable regarding her anxiety. She states she has not been in contact with her therapist in awhile. [facility] Medical History Anxiety Arthritis Depression GERD (gastroesophageal reflux disease) Opioid abuse Surgical History H/O colonoscopy History of lumpectomy of left breast History of right hip replacement History of surgery Ovarian cyst Family History Father Colon cancer Mother No problems noted. Paternal Grandmother Breast cancer Paternal Aunt No problems noted. Brother No problems noted. Brother No problems noted. Sister Cervical cancer Son Substance use disorder Son No problems noted. Social History Housing: House Alcohol intake: current Alcohol intake frequency: a few times a month Patient Tobacco Use Status: Never used Tobacco e-Cigarette/Vaping Use: Currently Using Second Hand Smoke Exposure: No service: No Current occupational status: unemployed Current occupational exposures/hazards: No Cognitive needs: No Hearing needs: No Vision needs: No Questionnaire PHQ-9 Over the last 2 weeks, how often have you been bothered by any of the following problems? 1. Little interest or pleasure in doing things: several days 2. Feeling down, depressed, or hopeless: several days 3. Trouble falling or staying asleep, or sleeping too much: not at all 4. Feeling tired or having little energy: not at all 5. Poor appetite or overeating: not at all 6. Feeling bad about yourself - or that you are a failure or have let yourself or your family down: several days 7. Trouble concentrating on things, such as reading the newspaper or watching television: several days 8. Moving or speaking so slowly that other people could have noticed. Or the opposite - being so fidgety or restless that you have been moving around a lot more than usual: several days 9. Thoughts that you would be better off or of hurting yourself in some way: not at all Total score: 5 Source: Developed by Drs. Maverick Mercedes, Rosi Desai, Manny Cruz and colleagues, with an educational adriane from [employer]. Thrive Questionnaire Date Thrive assessed: 11/02/22 AYUSH-7 AMB Questionnaire AYUSH-7 Date AYUSH - 7 assessed: 11/04/22 Feeling nervous, anxious, or on edge: 3 = Nearly every day Not being able to stop or control worryin = Nearly every day Worrying too much about different things: 3 = Nearly every day Trouble relaxin = Several days Being so restless that it is hard to sit still: 0 = Not at all Becoming easily annoyed or irritable: 0 = Not at all Feeling afraid as if something awful might happen: 1 = Several days Total AYUSH-7 score (0-4 normal; 5-9 mild; 10-14 moderate; 15-21 severe): 11 Source: Developed by Drs. Maverick Mercedes, Rosi Desai, Manny Cruz and colleagues, with an educational adriane from [employer]. Review of Systems Const Denies chills, Denies fatigue, Denies fever(s), Denies headache(s) and Denies weakness ENT Denies dizziness and Denies headache(s) Card Denies chest pain, Denies lightheadedness, Denies dyspnea and Denies other (Palpitations) Resp Denies cough, Denies dyspnea, Denies wheezing and Denies other ( shortness of breath) Musc Denies numbness and Denies tingling Neuro Denies dizziness, Denies headache(s), Denies numbness, Denies tingling, Denies paresthesias and Denies weakness Psych Reports anxiety and Denies depression Endo Denies fatigue Aller/Immun Denies wheezing Physical exam (Primary Care) Vital Signs: Last Vital Signs Pulse 67 10/01/23 14:31 BP 128/76 10/01/23 14:31 Pulse Ox 100 10/01/23 14:31 Oxygen Delivery Method Room Air 10/01/23 14:31 Tobacco/Smoking Status: Tobacco use Status Tobacco use date assessed 10/01/23 10/01/23 14:43 Patient Tobacco Use Status Never used Tobacco 10/01/23 14:43 Tobacco use type 04/22/23 14:41 e-Cigarette/Vaping Use Currently Using 10/01/23 14:43 PHQ-9: PHQ-9 Score PHQ-9: Total score 5 10/01/23 15:07 Thrive Assessment: Date of Thrive Assessment Date Thrive assessed 11/02/22 10/01/23 14:43 Const General: no acute distress and well developed Nutritional Appearance: well nourished Orientation/consciousness: patient oriented x3 [facility] Head: Yes normocephalic and Yes atraumatic Eyes General: appearance normal, both eyes and all related structures Pupils: Equal, round and reactive pupils present EOM: EOMs intact bilaterally Resp Effort & Inspection: normal respiratory effort Auscultation: clear to auscultation bilaterally Cardio Rate: regular rate Rhythm: regular rhythm Heart sounds: S1 normal heart sound present, S2 normal heart sound present, no gallops, no murmurs and no rubs Neuro General: patient oriented x3 and gait normal Cranial nerves: Yes Equal, round and reactive pupils present Psych Affect: Anxious affect present Assessment and Plan Assessment & Plan (1) Anxiety and depression: Code(s): F41.9 - Anxiety disorder, unspecified; F32.9 - Major depressive disorder, single episode, unspecified Plan: Somewhat?worsened?anxiety. She?has?not?been?in?contact?with?her?therapist?and?while?and?I?encouraged?her?to?reach?out?to?her?therapist?to?resume?therapy. She?is?on?3?medications?for?anxiety. We?discussed?holding?off?on?adding?another?although?could?consider?buspirone?if?worsened?at?follow-up. Advised?her?to?talk?to?her?therapist?about?referral?to?Psychiatry?as?she?is?on?numerous?medications?for?anxiety. Checking?urine?drug?screen?today. Patient?seems?to?have?run?out?early?on?her?aripiprazole.??This?is?a?non?controlled?substance?but?can?cause?some?drowsiness.??There?is?some?concern?that?her?son?may?be?accessing?her?medications. Advised?her?to?keep?all?of?her?medications?sequestered?away?from?others.??Patient?agrees (2) Opioid dependence: Code(s): F11.20 - Opioid dependence, uncomplicated Qualifiers: Complication of substance-induced condition: uncomplicated Plan: Followed?at?[facility] Orders: Orders Benzodiazepine,GC/MS Urine Today F11.99 - Opioid use, unspecified with unspecified opioid-induced disorder, F32.9 - Major depressive disorder, single episode, unspecified, F41.9 - Anxiety disorder, unspecified Drug Screen Urine Today F11.99 - Opioid use, unspecified with unspecified opioid-induced disorder, F32.9 - Major depressive disorder, single episode, unspecified, F41.9 - Anxiety disorder, unspecified Medications: Changed From aripiprazole 5 mg PO BEDTIME 30 days 30 tabs 1RF To aripiprazole 5 mg PO BEDTIME 90 days 90 tabs 2RF Refilled aripiprazole 5 mg PO BEDTIME 30 days 30 tabs 1RF Coding Level of Care Code Est Pt Level 3 (02144) Diagnoses Anxiety and depression F41.9; F32.9 Opioid dependence F11.20 Complication of substance-induced condition: uncomplicated
[2023-10-01 14:31] VITALS: BP 128/76; PULSE 67; O2SAT 100
== END 2023-10-01 15:38 | disposition home or self-care (01) ==
PROVIDERS: PCP Family Medicine; Visit Provider Family Medicine
DX: F32.9 Major depressive disorder, single episode, unspecified (principal); F41.9 Anxiety disorder, unspecified; F11.20 Opioid dependence, uncomplicated
CPT/HCPCS: 99213

== ENCOUNTER 2023-10-01 15:19 | Outpatient (REF) | payer OTHER, SELFPAY ==
[2023-10-01 18:30] LABS: Amphetamine Screen Urine Not Detected (Not Detect); Barbiturates, Urine Not Detected (Not Detect); Benzodiazepines Screen Urine Not Detected (Not Detect); Cannabinoid Screen Urine Not Detected (Not Detect); Cocaine Screen Urine Not Detected (Not Detect); Fentanyl, urine Not Detected (Not Detect); Opiate Screen Urine Not Detected (Not Detect); Phencyclidine Screen Urine Not Detected (Not Detect)
== END 2023-10-01 15:20 | disposition home or self-care (01) ==
LOC: HO.LAB 15:19
PROVIDERS: Visit Provider Family Medicine
DX: F11.20 Opioid dependence, uncomplicated (principal); F41.9 Anxiety disorder, unspecified; F32.9 Major depressive disorder, single episode, unspecified
CPT/HCPCS: 80307

== ENCOUNTER 2023-10-22 09:59 | Outpatient (AMB) | payer OTHER, SELFPAY ==
--- NOTE | 2023-10-22 10:02 | MHC.AM.SUB ---
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 Allergies chlorhexidine [CHLORAPREP] Allergy (Unknown, Verified 10/22/23 10:02) RASH Do you need a note to return to daycare/school/sports/work: No HPI mat visit HPI Details Pt presents follow up Currently being prescribed Suboxone 2mg BID Denies any side effects related to medication Restarting therapy soon PFSH Medical History Anxiety Arthritis Depression GERD (gastroesophageal reflux disease) Opioid abuse Surgical History H/O colonoscopy History of lumpectomy of left breast History of right hip replacement History of surgery Ovarian cyst Family History Father Colon cancer Mother No problems noted. Paternal Grandmother Breast cancer Paternal Aunt No problems noted. Brother No problems noted. Brother No problems noted. Sister Cervical cancer Son Substance use disorder Son No problems noted. Social History (Reviewed 05/18/23 @ 09:59 by Lisa Ferguson [facility]) Housing: House Alcohol intake: current Alcohol intake frequency: a few times a month Patient Tobacco Use Status: Never used Tobacco e-Cigarette/Vaping Use: Currently Using Second Hand Smoke Exposure: No service: No Current occupational status: unemployed Current occupational exposures/hazards: No Cognitive needs: No Hearing needs: No Vision needs: No Review of Systems Const Reports as per HPI Physical Exam Vital Signs: Last Vital Signs Pulse 78 10/22/23 10:09 BP 136/70 10/22/23 10:09 Pulse Ox 96 10/22/23 10:09 Oxygen Delivery Method Room Air 10/22/23 10:09 Const General: cooperative, healthy appearing, comfortable, no acute distress, well developed, alert and well groomed Nutritional Appearance: average body habitus and well nourished Orientation/consciousness: patient oriented x3 Limitations: no limitations Neuro General: patient oriented x3 Psych Appearance: grossly normal Mental Status: mental status grossly normal Speech and movement: Normal speech and movement present Affect: normal affect Attitude: cooperative Thought process: Normal thought process present Insight: Good insight present (Psych) Judgement: Good judgement present (Psych) Assessment & Plan Assessment & Plan (1) Opioid dependence: Code(s): F11.20 - Opioid dependence, uncomplicated Qualifiers: Complication of substance-induced condition: uncomplicated Plan: continue suboxone at current dose follow up 2 months Coding Level of Care Code Est Pt Level 3 (60216) Diagnoses Opioid dependence F11.20 Complication of substance-induced condition: uncomplicated
[2023-10-22 10:09] VITALS: BP 136/70; PULSE 78; O2SAT 96
== END 2023-10-22 10:31 | disposition home or self-care (01) ==
PROVIDERS: PCP Family Medicine; Visit Provider Nurse Practitioner Psychiatric/Mental Health
DX: F11.20 Opioid dependence, uncomplicated (principal)
CPT/HCPCS: 99213

== ENCOUNTER → 2023-10-22 09:59 | Outpatient (BNVA) | payer OTHER, SELFPAY | PROVIDERS: PCP Family Medicine; Visit Provider Nurse Practitioner Psychiatric/Mental Health | DX: F11.20 Opioid dependence, uncomplicated (principal) | CPT/HCPCS: 99212 ==

== ENCOUNTER 2023-11-11 11:26 | Outpatient (AMB) | payer OTHER, SELFPAY ==
--- NOTE | 2023-11-11 11:32 | A.OFFPC_ITS ---
Vital Signs 11/11/23 11:33 Height 5 ft 8 in Weight 180 lb BMI 27.4 BP 122/68 Blood Pressure Location Lt brachial Position Sitting Pulse 85 Pulse Source Pulse Oximeter Intake Visit Reasons: f/u anxiety/depression Intake Note: Patient is here for follow up on depression and anxiety. Patient is here requesting refill of clonazapam and Venlafaxine. Allergies chlorhexidine [CHLORAPREP] Allergy (Unknown, Verified 11/11/23 11:34) RASH Tobacco use date assessed: 11/11/23 Dental Screening Dental Screen Date: 11/11/23 Did you have a dental visit in the last 12 months?: Yes Did you have a dental problem in the last 6 months where you did not have access to dental care?: No Was dental information given to patient?: Patient has dentist HPI f/u anxiety/depression HPI Details 63 y/o female presents to f/u anxiety/de pression. Pt notes klonipin does not seem to help her sleep well anymore. She also uses abilify for sleep. She reports she sees her therapist every two weeks. [facility] Medical History Arthritis GERD (gastroesophageal reflux disease) Anxiety Depression Opioid abuse Surgical History H/O colonoscopy History of right hip replacement History of surgery Ovarian cyst History of lumpectomy of left breast Family History Father Colon cancer Mother No problems noted. Paternal Grandmother Breast cancer Paternal Aunt No problems noted. Brother No problems noted. Brother No problems noted. Sister Cervical cancer Son Substance use disorder Son No problems noted. Social History Housing: House Alcohol intake: current Alcohol intake frequency: a few times a month Patient Tobacco Use Status: Never used Tobacco e-Cigarette/Vaping Use: Currently Using Second Hand Smoke Exposure: No service: No Current occupational status: unemployed Current occupational exposures/hazards: No Cognitive needs: No Hearing needs: No Vision needs: No Questionnaire PHQ-9 Over the last 2 weeks, how often have you been bothered by any of the following problems? 1. Little interest or pleasure in doing things: several days 2. Feeling down, depressed, or hopeless: not at all 3. Trouble falling or staying asleep, or sleeping too much: nearly every day 4. Feeling tired or having little energy: several days 5. Poor appetite or overeating: not at all 6. Feeling bad about yourself - or that you are a failure or have let yourself or your family down: several days 7. Trouble concentrating on things, such as reading the newspaper or watching television: several days 8. Moving or speaking so slowly that other people could have noticed. Or the opposite - being so fidgety or restless that you have been moving around a lot more than usual: not at all 9. Thoughts that you would be better off or of hurting yourself in some way: not at all Total score: 7 Depression Screening Interpretation: Positive Depression Screening Follow-up: In treatment Depression Screening Done: Yes 52952 - PHQ-9 Billing: Yes Source: Developed by Drs. Maverick Mercedes, Rosi Desai, Manny Cruz and colleagues, with an educational adriane from [employer]. Thrive Questionnaire Date Thrive assessed: 11/02/22 AYUSH-7 AMB Questionnaire AYUSH-7 Date AYUSH - 7 assessed: 11/11/23 Feeling nervous, anxious, or on edge: 1 = Several days Not being able to stop or control worryin = Nearly every day Worrying too much about different things: 3 = Nearly every day Trouble relaxin = Several days Being so restless that it is hard to sit still: 0 = Not at all Becoming easily annoyed or irritable: 0 = Not at all Feeling afraid as if something awful might happen: 1 = Several days Total AYUSH-7 score (0-4 normal; 5-9 mild; 10-14 moderate; 15-21 severe): 9 Source: Developed by Drs. Maverick Mercedes, Rosi Desai, Manny Cruz and colleagues, with an educational adriane from [employer]. AYUSH-7 Assessment Billing AYUSH-7 Assessment Tool: AYUSH-7 Assessment 22114 Physical exam (Primary Care) Vital Signs: Last Vital Signs Pulse 85 11/11/23 11:33 BP 122/68 11/11/23 11:33 BMI result Body Mass Index 27.4 Tobacco/Smoking Status: Tobacco use Status Tobacco use date assessed 11/11/23 11/11/23 11:39 Patient Tobacco Use Status Never used Tobacco 11/11/23 11:39 Tobacco use type 04/22/23 14:41 e-Cigarette/Vaping Use Currently Using 11/11/23 11:39 PHQ-9: PHQ-9 Score PHQ-9: Total score 7 11/11/23 11:45 Depression Screening Interpretation: Positive Depression Screening Follow-up: In treatment Thrive Assessment: Date of Thrive Assessment Date Thrive assessed 11/02/22 11/11/23 11:39 Assessment and Plan Assessment & Plan (1) Anxiety and depression: Code(s): F41.9 - Anxiety disorder, unspecified; F32.9 - Major depressive disorder, single episode, unspecified Plan: Improved?from?last?visit?and?fairly?stable?today. Now?has?therapist - continue?to?work?with?therapy Taking?venlafaxine,?aripiprazole?and?clonazepam?as?prescribed. Urine?drug?screen?at?last?visit?was?appropriate. She?is?having?difficulty?sleeping-see?below. She?will?try?alternating?clonazepam?with?Ambien. Will?continue?to?follow (2) Difficulty sleeping: Code(s): G47.9 - Sleep disorder, unspecified Plan: Patient?had?been?using?clonazepam?for?anxiety?but?also?for?help?with?sleep?when? she?has?much?of?her?anxiety. She?notes?this?isn't?as?effective?as?it?had?been. She?had?used?Ambien?in?the?past?and?would?like?to?try?this?again. She?will?alternate?using?Ambien?and?clonazepam?on?different?nights?but?not?on?th e?same?night. She?will?try?to ?get?natural/physiologic?sleep?when?she?can?but?if?she?is?unable,?she?can?use?me dications?in?the?next?day. Coding Level of Care Code Est Pt Level 3 (70416) Diagnoses Anxiety and depression F41.9; F32.9 Difficulty sleeping G47.9 Additional Codes AYUSH-7 Assessment Billing - AYUSH-7 Assessment Tool: AYUSH-7 Assessment 24359 ([id number])
[2023-11-11 11:33] VITALS: BP 122/68; PULSE 85; BMI 27.4
== END 2023-11-11 12:31 | disposition home or self-care (01) ==
PROVIDERS: PCP Family Medicine; Visit Provider Family Medicine
DX: F41.9 Anxiety disorder, unspecified (principal); F32.9 Major depressive disorder, single episode, unspecified; G47.9 Sleep disorder, unspecified
CPT/HCPCS: 96127; 99213

== ENCOUNTER 2023-11-19 12:39 | Outpatient (REF) | payer OTHER, SELFPAY ==
--- NOTE | ~2023-11-19 | MM_ITS ---
EXAMINATION: MM SCREENING DIGITAL BREAST TOMOSYNTHESIS, BILATERAL CLINICAL INFORMATION: Screening. Asymptomatic. The patient has left breast cancer treated in 2012 with breast conservation. COMPARISON: Mammography: This study is compared with prior exams dating back to 2018. TECHNIQUE: Digital breast tomosynthesis is performed in both the craniocaudal and mediolateral oblique views along with computer-aided detection (CAD). Synthesized 2D images are generated from the tomosynthesis. FINDINGS: There are scattered areas of fibroglandular density (ACR BI-RADS breast composition Category b). There are no significant masses, abnormal calcifications, or other abnormalities. There are postsurgical changes in the upper outer quadrant of the left breast. MM/MM tomosynthesis screening BI IMPRESSION: No mammographic evidence of malignancy. ASSESSMENT: BI-RADS BI-RADS 2 - Benign Findings RECOMMENDATION: Routine annual mammography screening. 1 year F/U This examination should not preclude the clinical evaluation of a suspicious palpable abnormality. This patient's information was entered into a reminder system with a target due date for their next mammogram.
== END 2023-11-19 12:40 | disposition home or self-care (01) ==
LOC: HO.MAMMO 12:39
PROVIDERS: PCP Family Medicine; Visit Provider Family Medicine
DX: Z12.31 Encounter for screening mammogram for malignant neoplasm of breast (principal)
CPT/HCPCS: 77063; 77067

== ENCOUNTER → 2023-11-19 12:45 | Outpatient (BNV) | payer OTHER, SELFPAY | PROVIDERS: PCP Family Medicine; Visit Provider Radiology Diagnostic Radiology | DX: Z12.31 Encounter for screening mammogram for malignant neoplasm of breast (principal) | CPT/HCPCS: 77063; 77067 ==

== ENCOUNTER 2023-12-01 09:37 | Outpatient (REF) | payer OTHER, SELFPAY ==
[2023-12-06 08:36] LABS: Nordiazepam, GCMS Urine NEGATIVE
[2023-12-06 08:37] LABS: Alphahydroxymidazolam,GCMS Ur NEGATIVE; Alphahydroxytriazolam, GCMS Ur NEGATIVE; Alprazolam, GCMS Urine NEGATIVE; Flurazepam Metabolite,GCMS Ur NEGATIVE; Lorazepam GCMS Urine NEGATIVE; Oxazepam, GCMS Urine NEGATIVE; Temazepam, GCMS Urine NEGATIVE
== END 2023-12-01 09:38 | disposition home or self-care (01) ==
LOC: HO.LAB 09:37
PROVIDERS: PCP Family Medicine; Visit Provider Family Medicine
DX: F11.99 Opioid use, unspecified with unspecified opioid-induced disorder (principal); F41.9 Anxiety disorder, unspecified; F32.9 Major depressive disorder, single episode, unspecified
CPT/HCPCS: 80346

== ENCOUNTER 2024-01-14 13:32 | Outpatient (AMB) | payer OTHER, SELFPAY ==
--- NOTE | 2024-01-14 13:37 | MHC.AM.SUB ---
Intake Vital Signs 01/14/24 13:38 BP 125/60 Blood Pressure Location Rt radial Position Sitting Respiration 16 Pulse 94 Pulse Source Pulse Oximeter Pulse Oximetry (%) 92 Oxygen Delivery Method Room Air Intake Visit Reasons: mat visit Allergies chlorhexidine [CHLORAPREP] Allergy (Unknown, Verified 11/11/23 11:34) RASH HPI mat visit HPI Details Patient presets for follow up No issues related to subxone challenges with son who is using substances discussed seeking supports for herself --[facility] [place] [facility] Medical History Arthritis GERD (gastroesophageal reflux disease) Anxiety Depression Opioid abuse Surgical History H/O colonoscopy History of right hip replacement History of surgery Ovarian cyst History of lumpectomy of left breast Family History Father Colon cancer Mother No problems noted. Paternal Grandmother Breast cancer Paternal Aunt No problems noted. Brother No problems noted. Brother No problems noted. Sister Cervical cancer Son Substance use disorder Son No problems noted. Social History Housing: House Alcohol intake: current Alcohol intake frequency: a few times a month Patient Tobacco Use Status: Never used Tobacco e-Cigarette/Vaping Use: Currently Using Second Hand Smoke Exposure: No service: No Current occupational status: unemployed Current occupational exposures/hazards: No Cognitive needs: No Hearing needs: No Vision needs: No Review of Systems Const Reports as per HPI Physical Exam Vital Signs: Last Vital Signs Pulse 94 01/14/24 13:38 Resp 16 01/14/24 13:38 BP 125/60 01/14/24 13:38 Pulse Ox 92 01/14/24 13:38 Oxygen Delivery Method Room Air 01/14/24 13:38 Const General: cooperative, healthy appearing, comfortable, no acute distress, well developed, alert and well groomed Nutritional Appearance: average body habitus and well nourished Orientation/consciousness: patient oriented x3 Limitations: no limitations Neuro General: patient oriented x3 Psych Appearance: grossly normal Mental Status: mental status grossly normal Speech and movement: Normal speech and movement present Affect: normal affect Attitude: cooperative Thought process: Normal thought process present Insight: Good insight present (Psych) Judgement: Good judgement present (Psych) Assessment & Plan Assessment & Plan (1) Opioid dependence: Code(s): F11.20 - Opioid dependence, uncomplicated Qualifiers: Complication of substance-induced condition: uncomplicated Plan: continue suboxone at current dose follow up 2 months Coding Level of Care Code Est Pt Level 3 (29303) Diagnoses Opioid dependence F11.20 Complication of substance-induced condition: uncomplicated
[2024-01-14 13:38] VITALS: BP 125/60; PULSE 94; RESP 16; O2SAT 92
== END 2024-01-14 14:07 | disposition home or self-care (01) ==
PROVIDERS: PCP Family Medicine; Visit Provider Nurse Practitioner Psychiatric/Mental Health
DX: F11.20 Opioid dependence, uncomplicated (principal)
CPT/HCPCS: 99213

== ENCOUNTER → 2024-01-14 13:32 | Outpatient (BNVA) | payer OTHER, SELFPAY | PROVIDERS: PCP Family Medicine; Visit Provider Nurse Practitioner Psychiatric/Mental Health | DX: F11.20 Opioid dependence, uncomplicated (principal) | CPT/HCPCS: 99212 ==

== ENCOUNTER 2024-03-03 10:57 | Outpatient (AMB) | payer OTHER, SELFPAY ==
[2024-03-03 11:17] VITALS: BP 126/77; PULSE 75; O2SAT 95; BMI 30.3
--- NOTE | 2024-03-03 11:17 | MHC.PC.OV ---
Vital Signs 03/03/24 11:17 Height 5 ft 8 in Weight 199 lb 8 oz BMI 30.3 BP 126/77 Blood Pressure Location Lt brachial Position Sitting Pulse 75 Pulse Source Pulse Oximeter Pulse Oximetry (%) 95 Intake Visit Reasons: Extended exam with f/u labs and health maint. Intake Note: Patient is here for her physical today. Allergies chlorhexidine [CHLORAPREP] Allergy (Unknown, Verified 03/03/24 11:17) RASH Tobacco use date assessed: 11/11/23 Dental Screening Dental Screen Date: 11/11/23 HPI Extended exam with f/u labs and health maint. HPI Details 64 y/o female presents for an extended exam with f/u labs and health maintenance. Also f/u anxiety/depression. No recent labs to review. [facility] Medical History Arthritis GERD (gastroesophageal reflux disease) Anxiety Depression Opioid abuse Surgical History H/O colonoscopy History of right hip replacement History of surgery Ovarian cyst History of lumpectomy of left breast Family History Father Colon cancer Mother No problems noted. Paternal Grandmother Breast cancer Paternal Aunt No problems noted. Brother No problems noted. Brother No problems noted. Sister Cervical cancer Son Substance use disorder Son No problems noted. Social History Housing: House Alcohol intake: current Alcohol intake frequency: a few times a month Patient Tobacco Use Status: Never used Tobacco e-Cigarette/Vaping Use: Currently Using Second Hand Smoke Exposure: No service: No Current occupational status: unemployed Current occupational exposures/hazards: No Cognitive needs: No Hearing needs: No Vision needs: No Questionnaire PHQ-9 Over the last 2 weeks, how often have you been bothered by any of the following problems? 1. Little interest or pleasure in doing things: more than half the days 2. Feeling down, depressed, or hopeless: not at all 3. Trouble falling or staying asleep, or sleeping too much: not at all 4. Feeling tired or having little energy: several days 5. Poor appetite or overeating: not at all 6. Feeling bad about yourself - or that you are a failure or have let yourself or your family down: several days 7. Trouble concentrating on things, such as reading the newspaper or watching television: nearly every day 8. Moving or speaking so slowly that other people could have noticed. Or the opposite - being so fidgety or restless that you have been moving around a lot more than usual: not at all 9. Thoughts that you would be better off or of hurting yourself in some way: not at all Total score: 7 Depression Screening Interpretation: Positive Depression Screening Done: Yes 68713 - PHQ-9 Billing: Yes Source: Developed by Drs. Maverick Mercedes, Rosi Desai, Manny Cruz and colleagues, with an educational adriane from [employer]. Thrive Questionnaire Date Thrive assessed: 11/02/22 AYUSH-7 AMB Questionnaire AYUSH-7 Date AYUSH - 7 assessed: 03/03/24 Feeling nervous, anxious, or on edge: 0 = Not at all Not being able to stop or control worryin = Several days Worrying too much about different things: 1 = Several days Trouble relaxin = Several days Being so restless that it is hard to sit still: 0 = Not at all Becoming easily annoyed or irritable: 0 = Not at all Feeling afraid as if something awful might happen: 1 = Several days Total AYUSH-7 score (0-4 normal; 5-9 mild; 10-14 moderate; 15-21 severe): 4 Source: Developed by Drs. Maverick Mercedes, Rosi Desai, Manny Cruz and colleagues, with an educational adriane from [employer]. AYUSH-7 Assessment Billing AYUSH-7 Assessment Tool: AYUSH-7 Assessment 14531 Review of Systems Const Denies chills, Denies fatigue, Denies fever(s), Denies headache(s) and Denies weakness Eyes Denies change in vision ENT Denies dizziness, Denies headache(s), Denies hearing loss, Denies nasal congestion, Denies sinus pain, Denies sinus pressure and Denies sore throat Card Denies chest pain, Denies lightheadedness, Denies dyspnea and Denies other (palpitations) Resp Denies cough, Denies dyspnea and Denies wheezing GI Denies abdominal pain, Denies melena, Denies hematochezia, Denies change in bowel habits, Denies dyspepsia and Denies nausea Denies hematuria and Denies dysuria Musc Denies abnormal gait, Denies myalgias, Denies arthralgias, Denies numbness and Denies tingling Skin/Breast Denies rash, Denies unusual bruising and Denies wounds Neuro Denies abnormal gait, Denies dizziness, Denies headache(s), Denies memory loss, Denies numbness, Denies Sensory deficit (Neuro), Denies tingling and Denies weakness Psych Denies anxiety, Denies depression and Denies memory loss Endo Denies cold intolerance, Denies fatigue, Denies heat intolerance, Denies polydipsia and Denies polyuria Humberto/Lymph Denies easy bleeding and Denies easy bruising Aller/Immun Denies wheezing Physical exam (Primary Care) Vital Signs: Last Vital Signs Pulse 75 03/03/24 11:17 BP 126/77 03/03/24 11:17 Pulse Ox 95 03/03/24 11:17 BMI result Body Mass Index 30.3 Tobacco/Smoking Status: Tobacco use Status Tobacco use date assessed 11/11/23 03/03/24 11:25 Patient Tobacco Use Status Never used Tobacco 03/03/24 11:25 Tobacco use type 04/22/23 14:41 e-Cigarette/Vaping Use Currently Using 03/03/24 11:25 PHQ-9: PHQ-9 Score PHQ-9: Total score 7 03/03/24 12:03 Depression Screening Interpretation: Positive Thrive Assessment: Date of Thrive Assessment Date Thrive assessed 11/02/22 03/03/24 11:25 Const General: no acute distress, well developed, alert and awake Nutritional Appearance: well nourished Orientation/consciousness: patient oriented x3 HENMT Head: Yes normocephalic and Yes atraumatic Ears: hearing grossly normal bilaterally and TM's normal bilaterally General nose exam: Normal external nose present and Normal nares present Mouth: Normal oral and palatal mucosa present and moist mucous membranes Teeth and gingiva: dentition normal Throat: Yes posterior oropharynx normal Eyes General: appearance normal, both eyes and all related structures Pupils: Equal, round and reactive pupils present and Pupil accommodation reflex normal EOM: EOMs intact bilaterally Neck Neck: Yes normal visual inspection, Yes no lymphadenopathy and Yes trachea midline Thyroid: Thyroid normal Carotids: no bruits Lymphatic: no lymphadenopathy noted Chest Chest palpation & inspection: normal inspection of the chest Resp Effort & Inspection: normal respiratory effort Auscultation: clear to auscultation bilaterally Cardio Rate: regular rate Rhythm: regular rhythm Heart sounds: S1 normal heart sound present, S2 normal heart sound present, no gallops, no murmurs and no rubs Bruits: no abdominal aortic bruits and no carotid bruits GI Palpation (GI): No Abdominal aortic bruit present, Soft to palpation, nontender, No hepatosplenomegaly present and No Rebound tenderness present Auscultation: normal bowel sounds General: Yes no CVA tenderness Back/Spine/Pelvis Back: no CVA tenderness Cervical Spine: cervical ROM normal and No Cervical spine tenderness Thoracic/Lumbar Spine: thoraco-lumbar ROM normal, No pain with thoraco-lumbar ROM, No thoracic spinal tenderness and No lumbar spinal tenderness Skin Lesions: no lesions Rashes: no rashes Trauma: no lacerations or abrasions Wounds: no wounds Nails: normal Neuro General: patient oriented x3 Cranial nerves: Yes Equal, round and reactive pupils present Cognition (Neuro): normal cognition Gait exam (Neuro): Normal gait present Motor exam (neuro): 5/5 motor strength present throughout Sensory Exam: No Sensory deficit (Neuro) Deep tendon reflexes (DTR's): Right patellar reflex intensity grade: 2+ and Left patellar reflex intensity grade: 2+ Extrem General: Yes normal to inspection and No edema Psych Appearance: grossly normal Affect: normal affect Attitude: cooperative Thought process: Normal thought process present Assessment and Plan Assessment & Plan (1) Anxiety and depression: Code(s): F41.9 - Anxiety disorder, unspecified; F32.9 - Major depressive disorder, single episode, unspecified Plan: Fairly?stable?on?current?medication?regimen. No?medication?changes?today (2) Screening for colon cancer: Code(s): Z12.11 - Encounter for screening for malignant neoplasm of colon Plan: Followed?by?[facility]?GI Follow-up?as?recommended (3) Breast cancer screening by mammogram: Code(s): Z12.31 - Encounter for screening mammogram for malignant neoplasm of breast Plan: Mammogram?in?November?negative?for?malignancy Continue?annual?screen (4) Screening for cervical cancer: Code(s): Z12.4 - Encounter for screening for malignant neoplasm of cervix Plan: Followed?by?[facility]?OBGYN Follow-up?as?recommended (5) Obesity (BMI 30-39.9): Code(s): E66.9 - Obesity, unspecified Plan: Encouraged?healthy?diet?with?active?lifestyle?and?exercise Encouraged?decreasing?portion?sizes?with?healthy?diet Patient?would?like?to?try?Ozempic.??We?discussed?she?is?unlikely?to?be?able?to?get?this?approved?by?insurance.??Will?send?script (6) Adult general medical exam: Code(s): Z00.00 - Encounter for general adult medical examination without abnormal findings Plan: 64-year-old?female?presents?for?an?extended?exam Encouraged?healthy?diet?with?active?lifestyle?and?plenty?of?exercise Orders: Orders Lipid Panel Today Z00.00 - Encounter for general adult medical examination without abnormal findings Microalbumin, Random (w Creat) Today I10 - Essential (primary) hypertension TSH reflex Free T4 Today Z00.00 - Encounter for general adult medical examination without abnormal findings Vitamin D 25-OH Total Today E55.9 - Vitamin D deficiency, unspecified Comprehensive [place]. Panel Fast Today Z00.00 - Encounter for general adult medical examination without abnormal findings Complete Blood Count Auto Diff Today Z00.00 - Encounter for general adult medical examination without abnormal findings UA and rflx microscopic Today Z00.00 - Encounter for general adult medical examination without abnormal findings Medications: New semaglutide (Ozempic) for 4 weeks 0.25 mg (0.368 mL) subcut QWEEK 28 days 1.472 mL 3RF E66.9 - Obesity, unspecified Coding Level of Care Code Est Pt Level 4 (72152) Diagnoses Anxiety and depression F41.9; F32.9 Screening for colon cancer Z12.11 Breast cancer screening by mammogram Z12.31 Screening for cervical cancer Z12.4 Obesity (BMI 30-39.9) E66.9 Adult general medical exam Z00.00 Additional Codes AYUSH-7 Assessment Billing - AYUSH-7 Assessment Tool: AYUSH-7 Assessment 59574 ([id number])
== END 2024-03-03 12:22 | disposition home or self-care (01) ==
PROVIDERS: PCP Family Medicine; Visit Provider Family Medicine
DX: Z00.00 Encounter for general adult medical examination without abnormal findings (principal); F41.9 Anxiety disorder, unspecified; F32.9 Major depressive disorder, single episode, unspecified; Z12.11 Encounter for screening for malignant neoplasm of colon; Z12.31 Encounter for screening mammogram for malignant neoplasm of breast; E66.9 Obesity, unspecified
CPT/HCPCS: 99214; 99396

== ENCOUNTER 2024-03-10 08:31 | Outpatient (REF) | payer OTHER, SELFPAY ==
[2024-03-10 08:45] LABS: MANUAL DIFF FLAG NO
[2024-03-10 09:05] LABS: Basophils Percent Auto 0.5 % (0-2); Eosinophils Absolute Auto 0.1 X10*3/uL (0.0-0.4); Eosinophils Percent Auto 2.5 % (0-4); Hematocrit 38.8 % (37.0-47.0); Hemoglobin 12.9 g/dl (12.0-16.0); Imm Gran Abs Auto 0.01 X10*3/uL (0.00-0.03); Imm Gran Pct Auto 0.2 % (0.0-0.4); Lymphocytes Absolute Auto 1.6 X10*3/uL (1.2-4.9); Lymphocytes Percent Auto 36.2 % (20-40); Mean Corpuscular HGB Conc 33.2 g/dl (31.0-35.0); Mean Corpuscular Hemoglobin 29.5 pg (27.0-33.0); Mean Corpuscular Volume 88.8 fL (80.0-98.0); Mean Platelet Volume 8.3 fL (9.4-12.3); Monocytes Absolute Auto 0.4 X10*3/uL (0.1-1.2); Monocytes Percent Auto 8.5 % (2-11); Neutrophils Absolute Auto 2.3 x10*3/uL (2.0-8.3); Neutrophils Percent Auto 52.1 % (45-73); Platelet Count 282 X10*3/uL (160-400); Red Blood Count 4.37 X10*6/uL (4.20-5.50); Red Cell Distribution Width 12.8 % (11.0-16.0); White Blood Count 4.4 X10*3/uL (4.8-10.8)
[2024-03-10 09:42] LABS: Alanine Aminotransferase 41 U/L (0-31); Albumin Level 3.9 g/dL (3.5-5.0); Alkaline Phosphatase 84 U/L (39-117); Anion Gap 14 (12-20); Aspartate Amino Transferase 24 U/L (5-31); Bilirubin Total 0.4 mg/dL (0.0-1.0); Blood Urea Nitrogen 11 mg/dL (9-16); Calcium 9.1 mg/dL (8.4-10.2); Carbon Dioxide 27 mmol/L (22-29); Chloride 106 mmol/L (96-108); Cholesterol 233 mg/dL (<200); Estimated Glomerular Filt Rate > 60; Glucose Fasting 96 mg/dL (60-99); HDL Cholesterol 66 mg/dL (>40); LDL Cholesterol Calculated 147 mg/dL (<100); Sodium 143 mmol/L (135-145); Total Protein 6.8 g/dL (6.5-8.0); Triglycerides 100 mg/dL (<150)
[2024-03-10 09:53] LABS: Appearance Urine Clear; Color Urine Yellow; Glucose Urine UA Negative (Negative); Leukocyte Esterase Urine Negative (Negative); Nitrite Urine Negative (Negative); PH 5.5 (5.0-9.0); Urine Blood Negative (Negative); Urine Ketones Negative (Negative); Urine Protein Negative (Neg-Trace)
[2024-03-10 09:58] LABS: TSH reflex Free T4 2.74 uIU/mL (0.32-4.0)
[2024-03-10 10:30] LABS: Creatinine Urine 164.09 mg/dL; Microalbum/Creatinine Ratio Ur 4.2 ug/mg cr (<30)
== END 2024-03-10 08:32 | disposition home or self-care (01) ==
LOC: HO.LAB 08:31
PROVIDERS: PCP Family Medicine
DX: Z00.00 Encounter for general adult medical examination without abnormal findings (principal); I10 Essential (primary) hypertension; E55.9 Vitamin D deficiency, unspecified
CPT/HCPCS: 36415; 80053; 80061; 81003; 82043; 82306; 82570; 84443; 85025

== ENCOUNTER 2024-05-01 10:04 | Outpatient (AMB) | payer OTHER, SELFPAY ==
--- NOTE | 2024-05-01 10:20 | MHC.AM.SUB ---
Intake Visit Reasons: mat visit Allergies chlorhexidine [CHLORAPREP] Allergy (Unknown, Verified 03/03/24 11:17) RASH HPI HPI mat visit: Details: Patient presents for follow up Currently prescribed Suboxone No issues related to medication discussing stress related to her son who lives with [facility] Medical History Arthritis GERD (gastroesophageal reflux disease) Anxiety Depression Opioid abuse Surgical History H/O colonoscopy History of right hip replacement History of surgery Ovarian cyst History of lumpectomy of left breast Family History Father Colon cancer Mother No problems noted. Paternal Grandmother Breast cancer Paternal Aunt No problems noted. Brother No problems noted. Brother No problems noted. Sister Cervical cancer Son Substance use disorder Son No problems noted. Social History Housing: House Alcohol intake: current Alcohol intake frequency: a few times a month Patient Tobacco Use Status: Never used Tobacco e-Cigarette/Vaping Use: Currently Using Second Hand Smoke Exposure: No service: No Current occupational status: unemployed Current occupational exposures/hazards: No Cognitive needs: No Hearing needs: No Vision needs: No Review of Systems Const Reports as per HPI and Reports no additional complaints Physical Exam Const General: cooperative, healthy appearing, comfortable, no acute distress, well developed, alert and well groomed Nutritional Appearance: average body habitus and well nourished Orientation/consciousness: patient oriented x3 Limitations: no limitations Neuro General: patient oriented x3 Psych Appearance: grossly normal Mental Status: mental status grossly normal Speech and movement: Normal speech and movement present Affect: normal affect Attitude: cooperative Thought process: Normal thought process present Insight: Good insight present (Psych) Judgement: Good judgement present (Psych) Assessment & Plan Assessment & Plan (1) Opioid dependence: Code(s): F11.20 - Opioid dependence, uncomplicated Category: Medical Plan: continue suboxone at current dose interested in tapering off of medication--will discuss strategies at next visit as current dose is too low for transition to injection
== END 2024-05-01 10:40 | disposition home or self-care (01) ==
PROVIDERS: PCP Family Medicine; Visit Provider Nurse Practitioner Psychiatric/Mental Health
DX: F11.20 Opioid dependence, uncomplicated (principal)
CPT/HCPCS: 99213

== ENCOUNTER → 2024-05-01 10:04 | Outpatient (BNVA) | payer OTHER, SELFPAY | PROVIDERS: PCP Family Medicine; Visit Provider Nurse Practitioner Psychiatric/Mental Health | DX: F11.20 Opioid dependence, uncomplicated (principal) | CPT/HCPCS: 99212 ==

== ENCOUNTER → 2024-05-04 15:53 | Outpatient (AMB) | payer OTHER, SELFPAY ==
--- NOTE | 2024-05-04 15:53 | MHC.PC.OV ---
Intake Visit Reasons: f/u CPE-labs via telemedicine Intake Note: Patient is here to follow up on lab results. Career Services Representative Required: No Slip Cover Estimator: Not Required per policy Accompanied by: Self / Same As Patient Allergies chlorhexidine [CHLORAPREP] Allergy (Unknown, Verified 05/04/24 15:54) RASH Tobacco use date assessed: 11/11/23 Dental Screening Dental Screen Date: 11/11/23 HPI f/u CPE-labs via telemedicine HPI Details 64 y/o female presents to f/u CPE-labs via telemedicine. Labs drawn 03/10/24. Reviewed labs with pt. Elevated ALT of 41. Triglycerides 100. TC 233. LDL 147. HDL 66. Vitamin D 30.0. TSH level 2.74 uIU/mL. She reports a sore throat. Denies any fevers. She reports ongoing difficulty sleeping. PFS Medical History Arthritis GERD (gastroesophageal reflux disease) Anxiety Depression Opioid abuse Surgical History H/O colonoscopy History of right hip replacement History of surgery Ovarian cyst History of lumpectomy of left breast Family History Father Colon cancer Mother No problems noted. Paternal Grandmother Breast cancer Paternal Aunt No problems noted. Brother No problems noted. Brother No problems noted. Sister Cervical cancer Son Substance use disorder Son No problems noted. Social History Housing: House Alcohol intake: current Alcohol intake frequency: a few times a month Patient Tobacco Use Status: Never used Tobacco e-Cigarette/Vaping Use: Currently Using Frequency of e-Cigarette/Vaping Use: Daily Second Hand Smoke Exposure: No service: No Current occupational status: unemployed Current occupational exposures/hazards: No Cognitive needs: No Hearing needs: No Vision needs: No Questionnaire Thrive Questionnaire Date Thrive assessed: 05/04/24 I am a: Patient What is your living situation today?: I have a steady place to live Within the past 12 months, did the food you bought not last and you didn't have the money to get more?: Never true Within the past 12 months, did you worry whether your food would run out before you got money to buy more?: Never true Do you have trouble paying for medicines?: No Do you have trouble getting transportation to medical appointments?: No Do you have trouble paying your heating and electricity bill?: No Do you have trouble taking care of your child, family member or friend?: No Do you have trouble with day-to-day activities such as bathing, preparing meals, shopping, managing finances, etc.?: No Are you currently unemployed and looking for a job?: No Are you interested in more education?: No Currently or been in a relationship where the following occur: No concerns reported THRIVE Score: 0 AUDIT C Alcohol Use Questionnaire (AUDIT-C) 1. How often do you have a drink containing alcohol?: 2-4 times a month 2. How many drinks containing alcohol do you have on a typical day when you are drinking?: 1 or 2 Total Score: 2 AYUSH-7 AMB Questionnaire AYUSH-7 Date AYUSH - 7 assessed: 03/03/24 Source: Developed by Drs. Maverick Mercedes, Rosi Desai, Manny Cruz and colleagues, with an educational adriane from [employer]. Review of Systems Const Denies chills, Denies fatigue, Denies fever(s), Denies headache(s) and Denies weakness ENT Denies dizziness and Denies headache(s) Card Denies dyspnea Resp Denies cough, Denies dyspnea, Denies wheezing and Denies other (shortness of breath) Musc Denies numbness and Denies tingling Neuro Denies dizziness, Denies headache(s), Denies numbness, Denies tingling and Denies weakness Psych Denies anxiety and Denies depression Endo Denies fatigue Aller/Immun Denies wheezing Physical exam (Primary Care) Tobacco/Smoking Status: Tobacco use Status Tobacco use date assessed 11/11/23 05/04/24 15:54 Patient Tobacco Use Status Never used Tobacco 05/04/24 15:54 Tobacco use type 04/22/23 14:41 e-Cigarette/Vaping Use Currently Using 05/04/24 15:54 Thrive Assessment: Date of Thrive Assessment Date Thrive assessed 05/04/24 05/04/24 15:58 Currently or been in a relationship where the following occur: No concerns reported Const General: well developed; No acute distress Nutritional Appearance: well nourished Orientation/consciousness: patient oriented x3 HENMT Head: Yes normocephalic and Yes atraumatic Eyes General: appearance normal, both eyes and all related structures Pupils: Equal, round and reactive pupils present EOM: EOMs intact bilaterally Resp Effort & Inspection: normal respiratory effort Neuro General: patient oriented x3 and gait normal Cranial nerves: Yes Equal, round and reactive pupils present Psych Affect: normal affect Telehealth Telehealth Telehealth Platform: Telephone Location of provider rendering services: practice address Location of patient: address on file Patient Identification confirmed using: Name, : Yes Telehealth method: voice only Patient verbally consented to treatment: Yes Patient verbally consented to billing insurance company: Yes Patient informed of any privacy concerns related to visit: Yes Minutes spent on Phone/Video with Pt.: 9 Assessment and Plan Assessment & Plan (1) Hypercholesterolemia: Code(s): E78.00 - Pure hypercholesterolemia, unspecified Plan: LDL?cholesterol?is?above?goal?of?less?than?100 She?has?been?losing?weight?secondary?to?Ozempic?use?and?lifestyle?changes Will?recheck?cholesterol?levels?prior?to?next?visit?and?discuss (2) Elevated ALT measurement: Code(s): R74.01 - Elevation of levels of liver transaminase levels Plan: Mildly?elevated?liver?enzyme Advised?weight?loss?and?patient?is?already?working?on?this?as?she?is?using?Ozempic?and?making?lifestyle?changes Also?advised?good?hydration Will?recheck?this. (3) Sore throat: Code(s): J02.9 - Acute pharyngitis, unspecified Plan: Advised?good?hydration,?rest?and?warm?saltwater?gargles If?not?improving?she?can?come?in?to?the?walk-in?for?evaluation (4) Obesity (BMI 30-39.9): Code(s): E66.9 - Obesity, unspecified Plan: Patient?is?tolerating?Ozempic?0.25?mg?weekly Will?increase?to?0.5?mg?weekly (5) Difficulty sleeping: Code(s): G47.9 - Sleep disorder, unspecified Plan: Refilled?her?Ambien Orders: Orders Comprehensive [place]. Panel Fast Today R74.01 - Elevation of levels of liver transaminase levels, Z00.00 - Encounter for general adult medical examination without abnormal findings Lipid Panel Today E78.00 - Pure hypercholesterolemia, unspecified, Z00.00 - Encounter for general adult medical examination without abnormal findings Medications: Changed From semaglutide (Ozempic) for 4 weeks 0.25 mg (0.368 mL) subcut QWEEK 28 days 1.472 mL 3RF E66.9 - Obesity, unspecified To semaglutide (Ozempic) for 4 weeks 0.5 mg (0.736 mL) subcut QWEEK 28 days 2.944 mL 3RF E66.9 - Obesity, unspecified Refilled zolpidem (Ambien) Masspat verified 5 mg PO BEDTIME 30 days PRN 12 tabs 0RF sleep naproxen 500 mg PO Q12H 60 tabs 3RF Coding Level of Care Code Tele Est Pt Level 2 (69394) Diagnoses Hypercholesterolemia E78.00 Elevated ALT measurement R74.01 Sore throat J02.9 Obesity (BMI 30-39.9) E66.9 Difficulty sleeping G47.9
== END ==
LOC: HO.HMGFM 15:53
PROVIDERS: PCP Family Medicine; Visit Provider Family Medicine
DX: E78.00 Pure hypercholesterolemia, unspecified (principal); R74.01 Elevation of levels of liver transaminase levels; J02.9 Acute pharyngitis, unspecified; E66.9 Obesity, unspecified; G47.9 Sleep disorder, unspecified
CPT/HCPCS: 99212

== ENCOUNTER 2024-06-22 11:20 | Outpatient (AMB) | payer OTHER, SELFPAY ==
--- NOTE | 2024-06-22 11:38 | A.OFFVISCC_ITS ---
Intake Visit Reasons: MAT Office Allergies chlorhexidine [CHLORAPREP] Allergy (Unknown, Verified 05/04/24 15:54) RASH HPI HPI MAT Office: Details: Patient presents for follow up Currently prescribed Suboxone 2mg BID Has been skipping night dose the last few nights also started ozempic sleep is impacted when she does not take the night time dose of suboxone PFSH Medical History Arthritis GERD (gastroesophageal reflux disease) Anxiety Depression Opioid abuse Surgical History H/O colonoscopy History of right hip replacement History of surgery Ovarian cyst History of lumpectomy of left breast Family History Father Colon cancer Mother No problems noted. Paternal Grandmother Breast cancer Paternal Aunt No problems noted. Brother No problems noted. Brother No problems noted. Sister Cervical cancer Son Substance use disorder Son No problems noted. Social History Housing: House Alcohol intake: current Alcohol intake frequency: a few times a month Patient Tobacco Use Status: Never used Tobacco e-Cigarette/Vaping Use: Currently Using Second Hand Smoke Exposure: No service: No Current occupational status: unemployed Current occupational exposures/hazards: No Cognitive needs: No Hearing needs: No Vision needs: No Review of Systems Const Reports as per HPI Physical Exam Const General: cooperative, healthy appearing, comfortable, no acute distress, well developed, alert and well groomed Nutritional Appearance: average body habitus and well nourished Orientation/consciousness: patient oriented x3 Limitations: no limitations Neuro General: patient oriented x3 Psych Appearance: grossly normal Mental Status: mental status grossly normal Speech and movement: Normal speech and movement present Affect: normal affect Attitude: cooperative Thought process: Normal thought process present Insight: Good insight present (Psych) Judgement: Good judgement present (Psych) Assessment & Plan Assessment & Plan (1) Opioid dependence: Code(s): F11.20 - Opioid dependence, uncomplicated Category: Medical Plan: * continue suboxone at current dose * interested in tapering off of medication-- * discussed injection at lowest dose (Brixadi) --will consider it
== END 2024-06-22 11:49 | disposition home or self-care (01) ==
PROVIDERS: PCP Family Medicine; Visit Provider Nurse Practitioner Psychiatric/Mental Health
DX: F11.20 Opioid dependence, uncomplicated (principal)
CPT/HCPCS: 99213

== ENCOUNTER → 2024-06-22 11:20 | Outpatient (BNVA) | payer OTHER, SELFPAY | PROVIDERS: PCP Family Medicine; Visit Provider Nurse Practitioner Psychiatric/Mental Health | DX: F11.20 Opioid dependence, uncomplicated (principal) | CPT/HCPCS: 99212 ==

== ENCOUNTER 2024-07-08 10:16 | Outpatient (REF) | payer OTHER, SELFPAY ==
[2024-07-08 11:59] LABS: Alanine Aminotransferase 31 U/L (0-31); Alkaline Phosphatase 88 U/L (39-117); Anion Gap 10 (12-20); Aspartate Amino Transferase 21 U/L (5-31); Bilirubin Total 0.4 mg/dL (0.0-1.0); Blood Urea Nitrogen 8 mg/dL (9-16); Calcium 9.1 mg/dL (8.4-10.2); Carbon Dioxide 29 mmol/L (22-29); Chloride 107 mmol/L (96-108); Cholesterol 211 mg/dL (<200); Estimated Glomerular Filt Rate > 60; Glucose Fasting 101 mg/dL (60-99); HDL Cholesterol 61 mg/dL (>40); LDL Cholesterol Calculated 129 mg/dL (<100); Potassium 4.1 mmol/L (3.3-5.1); Sodium 142 mmol/L (135-145); Total Protein 7.3 g/dL (6.5-8.0); Triglycerides 105 mg/dL (<150)
[2024-07-08 12:02] LABS: Vitamin D 25-OH Total 37.2 ng/mL (>30)
== END 2024-07-08 10:17 | disposition home or self-care (01) ==
LOC: HO.LAB 10:16
PROVIDERS: PCP Family Medicine; Visit Provider Family Medicine
DX: Z00.00 Encounter for general adult medical examination without abnormal findings (principal); E55.9 Vitamin D deficiency, unspecified; R74.01 Elevation of levels of liver transaminase levels; E78.00 Pure hypercholesterolemia, unspecified
CPT/HCPCS: 36415; 80053; 80061; 82306

== ENCOUNTER 2024-08-01 09:32 | Outpatient (AMB) | payer OTHER, SELFPAY ==
--- NOTE | 2024-08-01 09:43 | MHC.PC.OV ---
Vital Signs 08/01/24 09:45 Height 5 ft 8 in Weight 182 lb 6 oz BMI 27.7 BP 110/64 Blood Pressure Location Lt brachial Position Sitting Respiration 12 Pulse 78 Pulse Source Pulse Oximeter Temp 95.9 F L Temp Source Temporal Artery Scan Pulse Oximetry (%) 99 Oxygen Delivery Method Room Air Intake Visit Reasons: hyperlipidemia, elevated liver enzymes,weight loss Intake Note: Lab review, weight loss Allergies chlorhexidine [CHLORAPREP] Allergy (Unknown, Verified 08/01/24 09:43) RASH Tobacco use date assessed: 11/11/23 Dental Screening Dental Screen Date: 11/11/23 HPI hyperlipidemia, elevated liver enzymes,weight loss HPI Details 64 y/o female presents to f/u hyperlipidemia, elevated liver enzymes, weight loss. Labs drawn 07/08/24. Reviewed labs with pt. Elevated fasting glucose of 101. TC 211. LDL 129. HDL 61. Liver enzymes improved - AST 21, ALT 31. Has lost some weight since last office visit in February. 199lbs to 182 lb. She states she does not feel like her current dose is doing much for her. [facility] Medical History Arthritis GERD (gastroesophageal reflux disease) Anxiety Depression Opioid abuse Surgical History H/O colonoscopy History of right hip replacement History of surgery Ovarian cyst History of lumpectomy of left breast Family History Father Colon cancer Mother No problems noted. Paternal Grandmother Breast cancer Paternal Aunt No problems noted. Brother No problems noted. Brother No problems noted. Sister Cervical cancer Son Substance use disorder Son No problems noted. Social History Housing: House Alcohol intake: current Alcohol intake frequency: a few times a month Patient Tobacco Use Status: Never used Tobacco e-Cigarette/Vaping Use: Currently Using Second Hand Smoke Exposure: No service: No Current occupational status: unemployed Current occupational exposures/hazards: No Cognitive needs: No Hearing needs: No Vision needs: No Questionnaire PHQ-9 Over the last 2 weeks, how often have you been bothered by any of the following problems? 1. Little interest or pleasure in doing things: several days 2. Feeling down, depressed, or hopeless: several days 3. Trouble falling or staying asleep, or sleeping too much: several days 4. Feeling tired or having little energy: several days 5. Poor appetite or overeating: not at all 6. Feeling bad about yourself - or that you are a failure or have let yourself or your family down: several days 7. Trouble concentrating on things, such as reading the newspaper or watching television: not at all 8. Moving or speaking so slowly that other people could have noticed. Or the opposite - being so fidgety or restless that you have been moving around a lot more than usual: several days 9. Thoughts that you would be better off or of hurting yourself in some way: not at all Total score: 6 Source: Developed by Drs. Maverick Mercedes, Rosi Desai, Manny Cruz and colleagues, with an educational adriane from [employer]. Thrive Questionnaire Date Thrive assessed: 05/04/24 I am a: Patient What is your living situation today?: I have a steady place to live Within the past 12 months, did the food you bought not last and you didn't have the money to get more?: Never true Within the past 12 months, did you worry whether your food would run out before you got money to buy more?: Sometimes True Do you have trouble paying for medicines?: No Do you have trouble getting transportation to medical appointments?: No Do you have trouble paying your heating and electricity bill?: No Do you have trouble taking care of your child, family member or friend?: No Do you have trouble with day-to-day activities such as bathing, preparing meals, shopping, managing finances, etc.?: Yes Are you currently unemployed and looking for a job?: No Are you interested in more education?: No Please select the resources that you would like help with: None Currently or been in a relationship where the following occur: No concerns reported THRIVE Score: 1 AUDIT C Alcohol Use Questionnaire (AUDIT-C) 1. How often do you have a drink containing alcohol?: Monthly or less 2. How many drinks containing alcohol do you have on a typical day when you are drinking?: 1 or 2 3. How often do you have six or more drinks on one occasion?: Never Total Score: 1 AYUSH-7 AMB Questionnaire AYUSH-7 Date AYUSH - 7 assessed: 03/03/24 Feeling nervous, anxious, or on edge: 1 = Several days Not being able to stop or control worryin = Several days Worrying too much about different things: 1 = Several days Trouble relaxin = Several days Being so restless that it is hard to sit still: 0 = Not at all Becoming easily annoyed or irritable: 0 = Not at all Feeling afraid as if something awful might happen: 1 = Several days Total AYUSH-7 score (0-4 normal; 5-9 mild; 10-14 moderate; 15-21 severe): 5 Source: Developed by Drs. Maverick Mercedes, Rosi Desai, Manny Cruz and colleagues, with an educational adriane from [employer]. Review of Systems Const Denies chills, Denies fatigue, Denies fever(s), Denies headache(s) and Denies weakness ENT Denies dizziness and Denies headache(s) Card Denies dyspnea Resp Denies cough, Denies dyspnea, Denies wheezing and Denies other (shortness of breath) Musc Denies numbness and Denies tingling Neuro Denies dizziness, Denies headache(s), Denies numbness, Denies tingling and Denies weakness Psych Denies anxiety and Denies depression Endo Denies fatigue Aller/Immun Denies wheezing Physical exam (Primary Care) Vital Signs: Last Vital Signs Temp 95.9 F L 08/01/24 09:45 Pulse 78 08/01/24 09:45 Resp 12 08/01/24 09:45 BP 110/64 08/01/24 09:45 Pulse Ox 99 08/01/24 09:45 Oxygen Delivery Method Room Air 08/01/24 09:45 BMI result Body Mass Index 27.7 Tobacco/Smoking Status: Tobacco use Status Tobacco use date assessed 11/11/23 08/01/24 09:47 Patient Tobacco Use Status Never used Tobacco 08/01/24 09:47 Tobacco use type 04/22/23 14:41 e-Cigarette/Vaping Use Currently Using 08/01/24 09:47 PHQ-9: PHQ-9 Score PHQ-9: Total score 6 08/01/24 09:53 Thrive Assessment: Date of Thrive Assessment Date Thrive assessed 05/04/24 08/01/24 09:47 Currently or been in a relationship where the following occur: No concerns reported Const General: well developed; No acute distress Nutritional Appearance: well nourished Orientation/consciousness: patient oriented x3 HENMT Head: Yes normocephalic and Yes atraumatic Eyes General: appearance normal, both eyes and all related structures Pupils: Equal, round and reactive pupils present EOM: EOMs intact bilaterally Resp Effort & Inspection: normal respiratory effort Neuro General: patient oriented x3 and gait normal Cranial nerves: Yes Equal, round and reactive pupils present Psych Affect: normal affect Coding Level of Care Code Est Pt Level 4 (19267) Diagnoses Obesity E66.9 Hypercholesterolemia E78.00 Elevated ALT measurement R74.01 Assessment & Plan Assessment & Plan (1) Obesity: Code(s): E66.9 - Obesity, unspecified Category: Medical Plan: Patient?has?lost?almost?all?of?the?weight?she?had?gained?through?this?spring. She?is?a?little?frustrated?that?she?has?not?lost?more. Will?increase?Ozempic?which?she?is?tolerating?well Follow-up?in?a?few?months (2) Hypercholesterolemia: Code(s): E78.00 - Pure hypercholesterolemia, unspecified Category: Medical Plan: Lipids?have?improved?with?weight?loss. As?above,?will?continue?to?work?at?weight?loss Encouraged?a?diet?low?in?saturated?fats?and?cholesterol Encouraged?exercise (3) Elevated ALT measurement: Code(s): R74.01 - Elevation of levels of liver transaminase levels Category: Medical Plan: Liver?enzymes?have?normalized?with?weight?loss Continue?weight?control Will?recheck?liver?enzymes?subsequently Orders: Orders Lipid Panel Today E78.00 - Pure hypercholesterolemia, unspecified, Z00.00 - Encounter for general adult medical examination without abnormal findings Comprehensive [place]. Panel Fast Today R74.01 - Elevation of levels of liver transaminase levels, Z00.00 - Encounter for general adult medical examination without abnormal findings Medications: Changed From semaglutide (Ozempic) for 4 weeks 0.5 mg (0.736 mL) subcut QWEEK 28 days 2.944 mL 3RF E66.9 - Obesity, unspecified To semaglutide for 4 weeks 1 mg (0.75 mL) subcut QWEEK 3 mL 3RF 28 days E66.9 - Obesity, unspecified Refilled clonazepam 2 mg (2 x 1 mg) PO DAILY 56 tabs 0RF 28 days F32.9 - Major depressive disorder, single episode, unspecified, F41.9 - Anxiety disorder, unspecified zolpidem (Ambien) Masspat verified 5 mg PO BEDTIME PRN 12 tabs 0RF sleep 30 days
[2024-08-01 09:45] VITALS: BP 110/64; PULSE 78; RESP 12; TEMP 35.5; O2SAT 99; BMI 27.7
== END 2024-08-01 10:00 | disposition home or self-care (01) ==
LOC: HO.HMCFM 09:33
PROVIDERS: PCP Family Medicine; Visit Provider Family Medicine
DX: E78.00 Pure hypercholesterolemia, unspecified (principal); R74.01 Elevation of levels of liver transaminase levels; E66.9 Obesity, unspecified; Z68.27 Body mass index [BMI] 27.0-27.9, adult

== ENCOUNTER → 2024-08-01 09:32 | Outpatient (BNVA) | payer OTHER, SELFPAY | PROVIDERS: PCP Family Medicine; Visit Provider Family Medicine | DX: E66.9 Obesity, unspecified (principal); E78.00 Pure hypercholesterolemia, unspecified; R74.01 Elevation of levels of liver transaminase levels | CPT/HCPCS: 96127; 99212 ==

== ENCOUNTER 2024-09-13 11:05 | Outpatient (AMB) | payer OTHER, SELFPAY ==
--- NOTE | 2024-09-13 11:11 | A.OFFVISCC_ITS ---
Intake Visit Reasons: MAT Office Allergies chlorhexidine [CHLORAPREP] Allergy (Unknown, Verified 08/01/24 09:43) RASH HPI HPI MAT Office: Details: Patient presents for follow up Current suboxone dose is 2mg BID Was denied Brixadi injection No issues with current dose and continues to find it effective Starting to plan for move to [place] Feeling conflicted due to her son's ongoing substance use and how dependant she feels he is on her She feels this is impacting her life in many areas, and has prolonged her stay in [place] Discussed accessing support for herself --provided with [facility] information Review of Systems Const Reports as per HPI and Reports no additional complaints Physical Exam Const General: cooperative, healthy appearing, comfortable, no acute distress, well developed, alert and well groomed Nutritional Appearance: average body habitus and well nourished Orientation/consciousness: patient oriented x3 Limitations: no limitations Neuro General: patient oriented x3 Psych Appearance: grossly normal Mental Status: mental status grossly normal Speech and movement: Normal speech and movement present Affect: normal affect Attitude: cooperative Thought process: Normal thought process present Insight: Good insight present (Psych) Judgement: Good judgement present (Psych) Assessment & Plan Assessment & Plan (1) Opioid dependence: Code(s): F11.20 - Opioid dependence, uncomplicated Category: Medical Plan: * continue suboxone at current dose * follow up mid November * encouraged to call [employer] for support with sons [facility] Medical History (Updated 09/13/24 @ 11:46 by Naomi Vaz CNP) Arthritis GERD (gastroesophageal reflux disease) Anxiety Depression Opioid abuse Surgical History H/O colonoscopy History of right hip replacement History of surgery Ovarian cyst History of lumpectomy of left breast Family History Father Colon cancer Mother No problems noted. Paternal Grandmother Breast cancer Paternal Aunt No problems noted. Brother No problems noted. Brother No problems noted. Sister Cervical cancer Son Substance use disorder Son No problems noted. Social History Housing: House Alcohol intake: current Alcohol intake frequency: a few times a month Patient Tobacco Use Status: Never used Tobacco e-Cigarette/Vaping Use: Currently Using Second Hand Smoke Exposure: No service: No Current occupational status: unemployed Current occupational exposures/hazards: No Cognitive needs: No Hearing needs: No Vision needs: No
== END 2024-09-13 11:27 | disposition home or self-care (01) ==
PROVIDERS: PCP Family Medicine; Visit Provider Nurse Practitioner Psychiatric/Mental Health
DX: F11.20 Opioid dependence, uncomplicated (principal)
CPT/HCPCS: 99213

== ENCOUNTER → 2024-09-13 11:05 | Outpatient (BNVA) | payer OTHER, SELFPAY | PROVIDERS: PCP Family Medicine; Visit Provider Nurse Practitioner Psychiatric/Mental Health | DX: F11.20 Opioid dependence, uncomplicated (principal); Z51.81 Encounter for therapeutic drug level monitoring | CPT/HCPCS: 99212 ==

== ENCOUNTER → 2024-11-02 13:34 | Outpatient (BNVA) | payer OTHER, SELFPAY | PROVIDERS: PCP Family Medicine; Visit Provider Family Medicine ==

== ENCOUNTER 2024-11-03 08:48 | Outpatient (REF) | payer OTHER, SELFPAY ==
--- OUTSIDE RECORDS SUMMARY | 2024-11-03 09:05 | XMS_ITS | Clinical Summary ---
Author Organization [facility] ity Address [address] [place] [address] Care Team Providers Care Pnp Name Role Phone Unavailable Primary Care Provider Unavailabl e Social History Tobacco Use Types Packs/Day Years Used Date Smoking Tobacco: Never Assessed Sex and Gender Information Value Date Recorded Sex Assigned at Not on file Gender Identity Not on file Sexual Orientation Not on file Plan of Treatment Health Maintenance Due Date Last Done Comments Breast Cancer Screening 1962 DTaP,Tdap,and Td Vaccines (1 - Tdap) 1981 Cervical Cancer Screening: P ap Smear 1983 Zoster Vaccines (1 of 2) 01/20/2012 COVID-19 Vaccine ( - 2023-2 5 season) 2024 Influenza Vaccine (#1) 2024 RSV Immunization Patients 60 + Years Old (1 - 1-dose 75+ series) 2037 HIB Vaccines Aged Out No longer eligi ble based on patient's age to complete this topic HPV Vaccines Aged Out No longer eligi ble based on patient's age to complete this topic Hepatitis A Vaccines Aged Out No long er eligible based on patient's age to complete this topic Hepatitis B Vaccines Aged Out No long er eligible based on patient's age to complete this topic IPV Vaccines Aged Out No longer eligi ble based on patient's age to complete this topic MMR Vaccines Aged Out No longer eligi ble based on patient's age to complete this topic Meningococcal ACWY Vaccine Aged Out N o longer eligible based on patient's age to complete this topic Pneumococcal Vaccine: Pediat rics (0 to 5 Years) and At-Risk Patients (6 to 64 Years) Aged Out No longer eligible b ased on patient's age to complete this topic RSV Immunization Patients Un flaquito 20 months Aged Out No longer eligible b ased on patient's age to complete this topic Varicella Vaccines Aged Out No longer eligible based on patient's age to complete this topic
[2024-11-03 10:08] LABS: Alanine Aminotransferase 15 U/L (0-31); Alkaline Phosphatase 71 U/L (39-117); Anion Gap 12 (12-20); Aspartate Amino Transferase 18 U/L (5-31); Bilirubin Total 0.4 mg/dL (0.0-1.0); Blood Urea Nitrogen 10 mg/dL (9-16); Calcium 9.4 mg/dL (8.4-10.2); Carbon Dioxide 29 mmol/L (22-29); Chloride 107 mmol/L (96-108); Cholesterol 191 mg/dL (<200); Estimated Glomerular Filt Rate > 60; Glucose Fasting 84 mg/dL (60-99); HDL Cholesterol 59 mg/dL (>40); LDL Cholesterol Calculated 118 mg/dL (<100); Potassium 4.6 mmol/L (3.3-5.1); Sodium 143 mmol/L (135-145); Triglycerides 72 mg/dL (<150)
== END 2024-11-03 08:49 | disposition home or self-care (01) ==
LOC: HO.LAB 08:48
PROVIDERS: PCP Family Medicine; Visit Provider Family Medicine
DX: Z00.00 Encounter for general adult medical examination without abnormal findings (principal); E78.00 Pure hypercholesterolemia, unspecified; R74.01 Elevation of levels of liver transaminase levels
CPT/HCPCS: 36415; 80053; 80061

== ENCOUNTER 2024-11-06 11:49 | Outpatient (AMB) | payer OTHER, SELFPAY ==
--- NOTE | 2024-11-06 11:43 | A.OFFPC_ITS ---
Intake Visit Reasons: labs/Review [facility] [phone] Ship Painter Helper Required: No Allergies chlorhexidine [CHLORAPREP] Allergy (Unknown, Verified 11/06/24 11:46) RASH Tobacco use date assessed: 11/11/23 Dental Screening Dental Screen Date: 11/11/23 HPI labs/Review med [facility] [phone] HPI Details 64 y/o female presents to f/u labs via elemedicine. Labs drawn 11/03/24. Reviewed labs with pt. Triglycerides 72. TC 191. LDL improved from 129 to 118. HDL 59. Liver enzymes are fine - AST 18, ALT 15. HPI Comments History of Present Illness Details Documentation assistance for Bj Esqueda MD, was provided by Petey Bush, Wick And Base Assembler on 11/06/2024 at 11:58 AM EST. I, Dr. Esqueda, have read, observed, and verified documentation. [facility] Medical History (Updated 09/13/24 @ 11:46 by Naomi Vaz [facility]) Arthritis GERD (gastroesophageal reflux disease) Anxiety Depression Opioid abuse Surgical History H/O colonoscopy History of right hip replacement History of surgery Ovarian cyst History of lumpectomy of left breast Family History Father Colon cancer Mother No problems noted. Paternal Grandmother Breast cancer Paternal Aunt No problems noted. Brother No problems noted. Brother No problems noted. Sister Cervical cancer Son Substance use disorder Son No problems noted. Social History Housing: House Alcohol intake: current Alcohol intake frequency: a few times a month Patient Tobacco Use Status: Never used Tobacco e-Cigarette/Vaping Use: Currently Using Second Hand Smoke Exposure: No service: No Current occupational status: unemployed Current occupational exposures/hazards: No Cognitive needs: No Hearing needs: No Vision needs: No Questionnaire Thrive Questionnaire Date Thrive assessed: 10/26/24 AYUSH-7 AMB Questionnaire AYUSH-7 Date AYUSH - 7 assessed: 03/03/24 Source: Developed by Drs. Maverick Mercedes, Rosi Desai, Manny Cruz and colleagues, with an educational adriane from [employer]. Physical exam (Primary Care) Tobacco/Smoking Status: Tobacco use Status Tobacco use date assessed 11/11/23 11/06/24 11:46 Patient Tobacco Use Status Never used Tobacco 11/06/24 11:46 Tobacco use type 11/02/24 14:04 e-Cigarette/Vaping Use Currently Using 11/06/24 11:46 Thrive Assessment: Date of Thrive Assessment Date Thrive assessed 10/26/24 11/06/24 11:46 Telehealth Telehealth Telehealth Platform: Telephone Location of provider rendering services: practice address Location of patient: address on file Patient Identification confirmed using: Name, : Yes Telehealth method: voice only Patient verbally consented to treatment: Yes Patient verbally consented to billing insurance company: Yes Patient informed of any privacy concerns related to visit: Yes Minutes spent on Phone/Video with Pt.: 5 Coding Level of Care Code Tele Est Pt Level 2 (30347) Diagnoses Obesity E66.9 Hypercholesterolemia E78.00 Elevated ALT measurement R74.01 Assessment & Plan Assessment & Plan (1) Obesity: Code(s): E66.9 - Obesity, unspecified Category: Medical Plan: Patient?is?on?was?epic?and?continues?to?lose?weight.??She?says?she?is?now?weighi ng?about?165. Continue?Ozempic Continue?weight?loss? (2) Hypercholesterolemia: Code(s): E78.00 - Pure hypercholesterolemia, unspecified Category: Medical Plan: Lipids?continue?to?improve?with?weight?loss. LDL?cholesterol?118. Encouraged?ongoing?diet?low?in?saturated?fats?and?cholesterol.??Enco uraged?weight?loss? (3) Elevated ALT measurement: Code(s): R74.01 - Elevation of levels of liver transaminase levels Category: Medical Plan: Liver?enzymes?had?been?high?when?her?weight?was?higher. Is?decrease?with?weight?loss?and?she?continues?to?lose?weight. Liver?enzymes?remain?in?normal?range Orders: Orders Comprehensive [place]. Panel Fast Today Z00.00 - Encounter for general adult medical examination without abnormal findings Lipid Panel Today Z00.00 - Encounter for general adult medical examination without abnormal findings TSH reflex Free T4 Today Z00.00 - Encounter for general adult medical examination without abnormal findings UA and rflx microscopic Today Z00.00 - Encounter for general adult medical examination without abnormal findings Complete Blood Count Auto Diff Today Z00.00 - Encounter for general adult med ical examination without abnormal findings Microalbumin, Random (w Creat) Today I10 - Essential (primary) hypertension Medications: Refilled venlafaxine 100 mg PO BID 180 tabs 1RF aripiprazole 5 mg PO BEDTIME 90 tabs 2RF 90 days zolpidem (Ambien) Masspat verified 5 mg PO BEDTIME PRN 12 tabs 0RF sleep 30 days clonazepam 2 mg (2 x 1 mg) PO DAILY 56 tabs 0RF 28 days F32.9 - Major depress josette disorder, single episode, unspecified, F41.9 - Anxiety disorder, unspecified
--- OUTSIDE RECORDS SUMMARY | 2024-11-06 13:09 | XMS_ITS | Clinical Summary ---
Author Organization [facility] ity Address [address] [place] [address] Care Team Providers Care Ludlow Machine Operator Name Role Phone Unavailable Primary Care Provider [...]
== END 2024-11-06 14:34 | disposition home or self-care (01) ==
LOC: HO.HMCFM 11:49
PROVIDERS: PCP Family Medicine; Visit Provider Family Medicine
DX: E78.00 Pure hypercholesterolemia, unspecified (principal); E66.9 Obesity, unspecified; R74.01 Elevation of levels of liver transaminase levels

== ENCOUNTER 2024-11-17 10:53 | Outpatient (AMB) | payer OTHER, SELFPAY ==
--- NOTE | 2024-11-17 11:06 | A.OFFVISCC_ITS ---
Intake Visit Reasons: MAT Office Allergies chlorhexidine [CHLORAPREP] Allergy (Unknown, Verified 11/06/24 11:46) RASH HPI HPI MAT Office: Details: Patient presents for follow up Currently prescribed Suboxone 2mg BID Tolerating current dose Plans to cut down dose this spring Review of Systems Const Reports as per HPI and Reports no additional complaints Physical Exam Const General: cooperative, healthy appearing, comfortable, no acute distress, well developed, alert and well groomed Nutritional Appearance: average body habitus and well nourished Orientation/consciousness: patient oriented x3 Limitations: no limitations Neuro General: patient oriented x3 Psych Appearance: grossly normal Mental Status: mental status grossly normal Speech and movement: Normal speech and movement present Affect: normal affect Attitude: cooperative Thought process: Normal thought process present Insight: Good insight present (Psych) Judgement: Good judgement present (Psych) [facility] Medical History (Updated 09/13/24 @ 11:46 by Naomi Vaz CNP) Arthritis GERD (gastroesophageal reflux disease) Anxiety Depression Opioid abuse Surgical History H/O colonoscopy History of right hip replacement History of surgery Ovarian cyst History of lumpectomy of left breast Family History Father Colon cancer Mother No problems noted. Paternal Grandmother Breast cancer Paternal Aunt No problems noted. Brother No problems noted. Brother No problems noted. Sister Cervical cancer Son Substance use disorder Son No problems noted. Social History Housing: House Alcohol intake: current Alcohol intake frequency: a few times a month Patient Tobacco Use Status: Never used Tobacco e-Cigarette/Vaping Use: Currently Using Second Hand Smoke Exposure: No service: No Current occupational status: unemployed Current occupational exposures/hazards: No Cognitive needs: No Hearing needs: No Vision needs: No Assessment & Plan Assessment & Plan (1) Opioid dependence: Code(s): F11.20 - Opioid dependence, uncomplicated Category: Medical Plan: * continue suboxone at current dose * follow up 3 months Medications: Refilled buprenorphine-naloxone 2-0.5 mg (Suboxone) 1 film sublingual BID 60 ea 2RF
--- OUTSIDE RECORDS SUMMARY | 2024-11-17 11:51 | XMS_ITS | Clinical Summary ---
Author Organization [facility] it Address [address] [place] [address] Care Team Providers Care Accounting Practice Manager Name Role Phone Unavailable Primary Care Provider Unavailabl e Social History Tobacco Use Types Packs/Day Years Used Date Smoking Tobacco: Never Assessed Comments Unknown Sex and Gender Information Value Date Recorded Sex Assigned at Not on file Legal Sex Female 5:56 PM EST Gender Identity Not on file Sexual Orientation Not on file Plan of Treatment Health Maintenance Due Date Last Done Comments Breast Cancer Screening 1960 DTaP,Tdap,and Td Vaccines (1 - Tdap) 1981 Cervical Cancer Screening: P ap Smear 1983 Pneumococcal Vaccine: 50+ Ye ars (1 of 1 - PCV) 01/20/2012 Zoster Vaccines (1 of 2) 01/20/2012 COVID-19 [...] patient's age to complete this topic Meningococcal B Vacine Aged Out No lo nger eligible based on patient's age to complete [...]
== END 2024-11-17 11:19 | disposition home or self-care (01) ==
LOC: HO.HCC 10:53
PROVIDERS: PCP Family Medicine; Visit Provider Nurse Practitioner Psychiatric/Mental Health
DX: F11.20 Opioid dependence, uncomplicated (principal)
CPT/HCPCS: 99213

== ENCOUNTER → 2024-11-17 10:53 | Outpatient (BNVA) | payer OTHER, SELFPAY | PROVIDERS: PCP Family Medicine; Visit Provider Nurse Practitioner Psychiatric/Mental Health | DX: F11.20 Opioid dependence, uncomplicated (principal); Z51.81 Encounter for therapeutic drug level monitoring | CPT/HCPCS: 99212 ==

== ENCOUNTER 2025-02-19 13:17 | Outpatient (AMB) | payer OTHER, SELFPAY ==
--- OUTSIDE RECORDS SUMMARY | 2025-02-19 13:19 | XMS_ITS ---
Author Organization [facility] on Care Team Providers Care Director Of Retail Operations Name Role Phone Cecily Flower Unavailable Unavailable Leena Rasheed Unavailable Unavailable Tyree, [place] Unavailable Unavailable Allergies and adverse reactions No Known Allergies Care Team Name Role Address Phone Organization Dates Leena Rasheed PCP [address] [place] [address], [id number], [facility] (Office): : [facility] [place] 11/11/2017 - 11/27/2017 Cecily Flower [address] [place] [address], [place] (Office): : [facility] [place] 11/11/2017 - 11/27/2017 Princewick Tyree [address] [place] [address], [address], [place] (Office): [facility] [place] 11/11/2017 - 11/27/2017 Immunizations Immunization Status Vaccine Details Vaccine Code CodeSystem Duong e Notes Influenza completed Influenza, split virus, trivalent, injectable, contains preservative 141 CVX created date: 11/12/2017 administered date: 07/04/2017 Pneumococcal Conjugate Vaccine (PCV13) cancelled pneumococcal conjugate vaccine, 13 valent 133 CVX created date: 11/12/2017 consent date: 11/12/2017 Mental Status Section Date Assessment Total Score Description 11/27/2017 BIMS 15 cognitively int act CAM 0 No delirium ind icated PHQ-9 04 minimal depress ion 11/18/2017 BIMS 15 cognitively int act CAM 0 No delirium ind icated PHQ-9 05 mild depression Problems Problem # Description Date of onset Resolved Date Code CodeSystem Concern Status 1 ANEMIA, UNSPECIFIED 11/22/[address] active 2 ATTENTION-DEFICIT HYPERACTIVITY DISORDER, UNSPECIFIED TYPE 11/11/[address] active 3 DIFFICULTY IN WALKING, NOT ELSEWHERE CLASSIFIED 11/11/[address] active 4 GENERALIZED ANXIETY DISORDER 11/11/[address] active 5 MAJOR DEPRESSIVE DISORDER, RECURRENT, UNSPECIFIED 11/11/[address] active 6 OTHER LACK OF COORDINATION 11/11/[address] active 7 UNSPECIFIED FRACTURE OF LOWER END OF LEFT TIBIA, SUBSEQUENT ENCOUNTER FOR CLOSED FRACTURE WITH ROUTINE HEALING 11/11/[address] active Reason for Referral No Reasons for Referral Entered Social History Social History Observation Description Start Date End Date Code Code System Current Smoking Status Tobacco smoking consumption unknown 125220063 SNOMED CT Sex Assigned At Female 1960 25491-0 [facility] Gender Identity Vital Signs Code Code System Vitals Name Values and Units Timing Information 21025-6 [facility] Pain Level Value=0.0 11/27/2017 9279-1 [facility] Respiratory Rate Value=18.0 Units=/m in 11/27/2017 8462-4 [facility] Blood Pressure-Diastolic Value=57 Un its=mmHg 11/27/2017 8480-6 [facility] Blood Pressure-Systolic Value=92 Uni ts=mmHg 11/27/2017 8310-5 [facility] Body Temperature Value=98.3 Units=?? F 11/27/2017 8867-4 [facility] Heart rate Value=88.0 Units=/min 11686-3 [facility] O2 % dC Oximetry Value=96.0 Units= % 11/27/2017 14653-0 [facility] Weight Gvyci=392.0 Units=Lbs
--- OUTSIDE RECORDS SUMMARY | 2025-02-19 13:19 | XMS_ITS | Clinical Summary ---
Author Organization [facility] ity Address [address] [place] [address] Care Team Providers Care Bilingual Operator Name Role Phone Unavailable Primary Care [...] - 2023-2 5 season) 2024 Influenza Vaccine (Season Ended) 2025 RSV Immunization Adult Patie nts (1 - 1-dose 75+ series) 2037 HIB [...] age to complete this topic Meningococcal B Vaccine Aged Out No l onger eligible based on patient's age to complete [...]
--- NOTE | 2025-02-19 13:42 | MHC.OFFVIS ---
Vital Signs 02/19/25 13:43 Height 5 ft 8 in Pulse 97 Pulse Oximetry (%) 98 Oxygen Delivery Method Room Air Intake Visit Reasons: MAT Allergies chlorhexidine [CHLORAPREP] Allergy (Unknown, Verified 02/19/25 13:43) RASH HPI HPI MAT: Details: She is doing well but wants to get off Suboxone. She says Sublocade was denied twice. [facility] Medical History Arthritis GERD (gastroesophageal reflux disease) Anxiety Depression Opioid abuse Surgical History H/O colonoscopy History of right hip replacement History of surgery Ovarian cyst History of lumpectomy of left breast Family History Father Colon cancer Mother No problems noted. Paternal Grandmother Breast cancer Paternal Aunt No problems noted. Brother No problems noted. Brother No problems noted. Sister Cervical cancer Son Substance use disorder Son No problems noted. Social History Housing: House Alcohol intake: current Alcohol intake frequency: a few times a month Patient Tobacco Use Status: Never used Tobacco e-Cigarette/Vaping Use: Currently Using Second Hand Smoke Exposure: No service: No Current occupational status: unemployed Current occupational exposures/hazards: No Cognitive needs: No Hearing needs: No Vision needs: No Review of Systems Const All systems reviewed & are unremarkable except as noted in HPI and below Physical Exam Vital Signs: Last Vital Signs Pulse 97 02/19/25 13:43 Pulse Ox 98 02/19/25 13:43 Oxygen Delivery Method Room Air 02/19/25 13:43 Const General: cooperative Assessment & Plan Assessment & Plan (1) Opioid dependence: Comment: She is doing well Code(s): F11.20 - Opioid dependence, uncomplicated Category: Medical Plan: Suboxone 2/.5 bid,one month and two refills. Try PA again for Sublocade. See us in three months. Medications: New buprenorphine-naloxone 2-0.5 mg (Suboxone) place 1 strip/tab under (each) side of tongue 1 film sublingual BID 30 days 60 ea 2RF buprenorphine ER (Sublocade) 300 mg (1.5 mL) subcut ONCE 1.5 mL 0RF Coding Level of Care Code Est Pt Level 3 (02644) Diagnoses Opioid dependence F11.20
[2025-02-19 13:43] VITALS: PULSE 97; O2SAT 98
== END 2025-02-19 14:14 | disposition home or self-care (01) ==
PROVIDERS: PCP Family Medicine; Visit Provider Internal Medicine
DX: F11.20 Opioid dependence, uncomplicated (principal)
CPT/HCPCS: 99213

== ENCOUNTER → 2025-02-19 14:15 | Outpatient (BNV) | payer OTHER, SELFPAY | PROVIDERS: PCP Family Medicine; Visit Provider Internal Medicine | DX: Z12.31 Encounter for screening mammogram for malignant neoplasm of breast (principal) | CPT/HCPCS: 77063; 77067 ==

== ENCOUNTER 2025-02-19 14:19 | Outpatient (REF) | payer OTHER, SELFPAY ==
--- OUTSIDE RECORDS SUMMARY | 2025-02-19 14:30 | XMS_ITS ---
Author Organization [facility] on Care Team Providers Care Vocational Rehab Consultant Name Role Phone Cecily Flower Unavailable Unavailable Leena Rasheed Unavailable Unavailable Tyree, Princewick Unavailable Unavailable Allergies and adverse reactions No Known Allergies Care Team Name Role Address Phone Organization Dates Leena Rasheed PCP [address] [place] [address], [address], [facility] (Office): : [facility] [place] 11/11/2017 - 11/27/2017 Cecily Flower [address] [place] [address], [place] (Office): : [facility] [place] 11/11/2017 - 11/27/2017 Princewick Tyree [address] [place] [address], [address], [place] (Office): [facility] 11/11/2017 - 11/27/2017 Immunizations Immunization Status Vaccine [...] CodeSystem Concern Status 1 ANEMIA, UNSPECIFIED 11/22/[address] active 2 ATTENTION-DEFICIT HYPERACTIVITY DISORDER, UNSPECIFIED TYPE 11/11/[address] active 3 DIFFICULTY IN WALKING, NOT ELSEWHERE CLASSIFIED 11/11/[address] active 4 GENERALIZED ANXIETY DISORDER 11/11/[address] active 5 MAJOR DEPRESSIVE DISORDER, RECURRENT, UNSPECIFIED 11/11/[address] active 6 OTHER LACK OF COORDINATION 11/11/[address] active 7 UNSPECIFIED FRACTURE OF LOWER END OF LEFT TIBIA, SUBSEQUENT ENCOUNTER FOR CLOSED FRACTURE WITH ROUTINE HEALING 11/11/[address] active Reason for Referral No Reasons for Referral Entered Social History Social History Observation Description Start Date End Date Code Code System Current Smoking Status Tobacco smoking consumption unknown 957126115 SNOMED CT Sex Assigned At Female 1960 [address]-2 [facility] Gender Identity Vital Signs Code Code System Vitals Name Values and Units Timing Information 77800-2 [facility] Pain Level Value=0.0 11/27/2017 9279-1 [facility] Respiratory Rate Value=18.0 Units=/m in 11/27/2017 8462-4 [facility] Blood Pressure-Diastolic Value=57 Un its=mmHg 11/27/2017 8480-6 [facility] Blood Pressure-Systolic Value=92 Uni ts=mmHg 11/27/2017 8310-5 [facility] Body Temperature Value=98.3 Units=?? F 11/27/2017 8867-4 [facility] Heart rate Value=88.0 Units=/min 34844-8 [facility] O2 % dC Oximetry Value=96.0 Units= % 11/27/2017 61052-5 [facility] Weight Iehhk=707.0 Units=Lbs
--- OUTSIDE RECORDS SUMMARY | 2025-02-19 14:30 | XMS_ITS | Clinical Summary ---
Author Organization [facility] ity Address [address] [place] [address] Care Team Providers Care Direct Care Counselor Name Role Phone Unavailable Primary Care Provider [...]
== END 2025-02-19 14:20 | disposition home or self-care (01) ==
LOC: HO.MAMMO 14:19
PROVIDERS: PCP Family Medicine; Visit Provider Family Medicine
DX: Z12.31 Encounter for screening mammogram for malignant neoplasm of breast (principal)
CPT/HCPCS: 77063; 77067; 99212

== ENCOUNTER → 2025-04-02 11:16 | Outpatient (AMB) | payer OTHER, SELFPAY ==
--- OUTSIDE RECORDS SUMMARY | 2025-04-02 12:08 | XMS_ITS | Clinical Summary ---
Author Organization [facility] ity Address [address] [place] [address] Care Team Providers Care Air Pollution Engineer Name Role Phone Unavailable Primary Care Provider [...]
--- NOTE | 2025-04-02 12:29 | AM.OFFVISNUR ---
Vital Signs 04/02/25 12:30 BP 104/60 Blood Pressure Location Lt brachial Position Sitting Intake Visit Reasons: Sublocade Injection Allergies chlorhexidine (CHLORAPREP) Allergy (Unknown, Verified 02/19/25 13:43) RASH Nursing Note Silvia presents today for her first Sublocade injection. Silvia is alert and oriented x 3 and presents with appropriate affect. Silvia reports doing well and feeling stable in recovery. No negative symptoms or breakthrough cravings. She is ready to be done with the sublingual films. Silvia reports that she is going on a cruise towards the end of the month, she expressed concerns due to timing of the injection; she was told that she could wait until after the cruise to initiate injections however she chose to proceed. Silvia is scheduled to get her second injection the day before she leaves. She had questions related to the motion sickness patch and was educated that some of the side effects that she may normally have may be heightened. Will check in with her in about a week to see how she is feeling and to determine next dose strength. Education and printed information provided with injection, all questions answered. Office Meds Sublocade 300 mg/1.5 mL solution,extended release subcutaneous syringe Performing Provider: Dania Jacobs MD Performing Location: [facility] Administered by: Eula Mills RN on 04/02/25 12:09 Dose Route Admin Location Dispensed Lot Number Expiration Date [facility] Molder Operator 300 mg subcut LLQ 1.5 mL [id number] 01/31/26 [address]-0 [employer] Total Dispensed Waste 1.5 mL 0 % Comments: Pt here for first Sublocade injection. Pt educated on what to expect and symptoms of infection,pt verbalized understanding will call [facility] with any questions or concerns. Pt tolerated injection well and scheduled second injection before she leaves for a cruise. Assessment & Plan Assessment & Plan Orders: Orders AMB Buprenorphine Injection - Patient Supplied Today F11.20 - Opioid dependence, uncomplicated Coding
[2025-04-02 12:30] VITALS: BP 104/60
== END ==
LOC: HO.HID 11:16
PROVIDERS: PCP Family Medicine
DX: F11.20 Opioid dependence, uncomplicated (principal)

== ENCOUNTER → 2025-04-02 11:16 | Outpatient (BNVA) | payer OTHER, SELFPAY | PROVIDERS: PCP Family Medicine | DX: F11.20 Opioid dependence, uncomplicated (principal) | CPT/HCPCS: 96372; Q9992 ==

== ENCOUNTER → 2025-04-25 11:31 | Outpatient (BNVA) | payer OTHER, SELFPAY | PROVIDERS: PCP Family Medicine | DX: F11.20 Opioid dependence, uncomplicated (principal) | CPT/HCPCS: 96372; Q9992 ==

== ENCOUNTER 2025-04-25 11:51 | Outpatient (AMB) | payer OTHER, SELFPAY ==
[2025-04-25 11:53] VITALS: BP 110/68; PULSE 78; BMI 22.3
--- NOTE | 2025-04-25 11:53 | AM.OFFVISNUR ---
Vital Signs 04/25/25 11:53 Height 5 ft 8 in Weight 66.678 kg BMI 22.3 BP 110/68 Pulse 78 Intake Visit Reasons: injection Allergies chlorhexidine (CHLORAPREP) Allergy (Unknown, Verified 04/25/25 11:55) RASH Nursing Note Silvia presents today for her second Sublocade injection. Silvia is alert and oriented and presents with appropriate affect, she is looking forward to leaving for her cruise tomorrow with her son and one of her friends. Silvia denies any negative symptoms associated with the first injection and denies any breakthrough withdrawal symptoms. She is in agreement to transition to the 100 mg injection next month. Follow up made in 4 weeks for next injection, Office Meds Sublocade 300 mg/1.5 mL solution,extended release subcutaneous syringe Performing Provider: Dania Jacobs MD Performing Location: [facility] Administered by: Eula Mills RN on 04/25/25 12:11 Dose Route Admin Location Dispensed Lot Number Expiration Date [facility] Concrete Paver 300 mg subcut RLQ 1.5 mL [id number] 01/31/26 [address]-0 [employer] Total Dispensed Waste 1.5 mL 0 % Comments: Pt here for Sublocade 300 mg injection. Pt denies any concern with previous injection and tolerated injection well. Educated on signs and symptoms of infection and encouraged to call [facility] with any related questions or concerns, pt verbalized understanding. Follow-up scheduled in 4 weeks for next injection. Assessment & Plan Assessment & Plan Orders: Orders AMB Buprenorphine Injection - Patient Supplied Today F11.20 - Opioid dependence, uncomplicated Coding
== END 2025-04-25 12:55 | disposition home or self-care (01) ==
LOC: HO.HCC 11:51
PROVIDERS: PCP Family Medicine
DX: F11.20 Opioid dependence, uncomplicated (principal)

== ENCOUNTER 2025-05-15 09:07 | Outpatient (REF) | payer OTHER, SELFPAY ==
[2025-05-15 09:29] LABS: MANUAL DIFF FLAG NO
[2025-05-15 09:37] LABS: Hematocrit 37.3 % (37.0-47.0); Hemoglobin 12.2 g/dl (12.0-16.0); Imm Gran Abs Auto 0.01 X10*3/uL (0.00-0.03); Imm Gran Pct Auto 0.3 % (0.0-0.4); Lymphocytes Absolute Auto 0.8 X10*3/uL (1.2-4.9); Mean Corpuscular HGB Conc 32.7 g/dl (31.0-35.0); Mean Corpuscular Hemoglobin 29.8 pg (27.0-33.0); Mean Corpuscular Volume 91.2 fL (80.0-98.0); NRBC Abs Auto 0.000 X10*3/uL (0.0-0.012); NRBC Pct Auto 0.0 /100WBC (0.0-0.2); Platelet Count 321 X10*3/uL (160-400); Red Blood Count 4.09 X10*6/uL (4.20-5.50); White Blood Count 3.3 X10*3/uL (4.8-10.8)
--- OUTSIDE RECORDS SUMMARY | 2025-05-15 09:41 | XMS_ITS | Clinical Summary ---
Author Organization [facility] ity Address [address] [place] [address] Care Team Providers Care Construction Rep Name Role Phone Unavailable Primary Care Provider [...] Vaccine ( - 2023-2 5 season) 2024 Depression Screening 10/04/2024 Influenza Vaccine (#1) 2025 RSV Immunization Adult Patie nts (1 [...]
[2025-05-15 10:31] LABS: Alanine Aminotransferase 18 U/L (0-31); Albumin Level 4.0 g/dL (3.5-5.0); Alkaline Phosphatase 101 U/L (39-117); Anion Gap 12 (12-20); Aspartate Amino Transferase 20 U/L (5-31); Blood Urea Nitrogen 8 mg/dL (9-16); Calcium 9.2 mg/dL (8.4-10.2); Carbon Dioxide 32 mmol/L (22-29); Chloride 105 mmol/L (96-108); Cholesterol 216 mg/dL (<200); Estimated Glomerular Filt Rate > 60; HDL Cholesterol 75 mg/dL (>40); Potassium 4.5 mmol/L (3.3-5.1); Sodium 144 mmol/L (135-145); Total Protein 7.0 g/dL (6.5-8.0); Triglycerides 65 mg/dL (<150)
[2025-05-15 10:52] LABS: Appearance Urine Clear; Glucose Urine UA Negative (Negative); PH 6.0 (5.0-9.0); Specific Gravity - Urine 1.020 (1.005-1.025); UMIC TRIGGER UA YES
[2025-05-15 11:12] LABS: Microalbum/Creatinine Ratio Ur 5.6 ug/mg cr (<30)
== END 2025-05-15 09:08 | disposition home or self-care (01) ==
LOC: HO.LAB 09:07
PROVIDERS: PCP Family Medicine; Visit Provider Family Medicine
DX: Z00.00 Encounter for general adult medical examination without abnormal findings (principal); I10 Essential (primary) hypertension
CPT/HCPCS: 36415; 80053; 80061; 81001; 82043; 82570; 84443; 85025

== ENCOUNTER → 2025-05-23 10:18 | Outpatient (BNVA) | payer OTHER, SELFPAY | PROVIDERS: PCP Family Medicine | DX: Z53.09 Procedure and treatment not carried out because of other contraindication (principal) ==

== ENCOUNTER 2025-05-24 11:54 | Outpatient (AMB) | payer OTHER, SELFPAY ==
--- NOTE | 2025-05-24 12:01 | MHC.PC.OV ---
Vital Signs 05/24/25 12:12 Height 5 ft 8 in Weight 146 lb 9 oz BMI 22.3 BP 102/62 Blood Pressure Location Rt brachial Position Sitting Pulse 76 Pulse Source Pulse Oximeter Pulse Oximetry (%) 95 Oxygen Delivery Method Room Air Intake Visit Reasons: CPE with f/u labs and health main Intake Note: Silvia presents in the office today for her annual physical and a review of her labs, Allergies chlorhexidine (CHLORAPREP) Allergy (Unknown, Verified 05/24/25 12:05) RASH Tobacco use date assessed: 05/24/25 Dental Screening Dental Screen Date: 05/24/25 Did you have a dental visit in the last 12 months?: Yes Did you have a dental problem in the last 6 months where you did not have access to dental care?: No Was dental information given to patient?: Patient has dentist HPI HPI Comments History of Present Illness Details This is a 65-year-old female with a past medical history of hyperlipidemia, opioid dependence, GERD, constipation and depression presenting for a physical exam. She went on a cruise. She sun burned her lower legs 05/07/2025. Legs have been swollen since then. It was a plane ride to [place] for the cruise. A week or 2 later she developed painful, red spots on her shins. Some of them look like pimples. She has had some whitish pus strain. No fevers or chills. She tried dcly-nkp-lecmwyc antibiotic ointment. No chest pain, shortness of breath or history of blood clots. 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 Last colonoscopy in 2020. Due in 2025 due to family history. Reviewed immunizations. She declines vaccines for which she is eligible. ROS: Constitutional: No unexplained weight loss, fever, chills, fatigue or night sweats. Eyes: No vision changes, blurry vision, double vision, eye pain, eye redness, eye discharge. ENT: No hearing loss, sneezing, congestion, runny nose or sore throat. Respiratory: No shortness of breath, cough or sputum production. Cardiovascular: No chest pain, chest pressure or chest discomfort. No palpitations or pedal edema. Gastrointestinal: No anorexia, nausea, vomiting or diarrhea. No abdominal pain or blood in stool. Genitourinary: No dysuria, hematuria, urinary frequency. Neurologic: No headache, dizziness, syncope, unilateral weakness, ataxia, numbness or tingling in the extremities. Musculoskeletal: See HPI Hematologic/Lymphatics: No bleeding or bruising. No painful lymph nodes. Skin: See HPI Endocrine: No cold or heat intolerance. No polyuria or polydipsia. Psychiatric:No SI/HI. Physical exam: Constitutional: Alert, in no distress. Head: Normocephalic. Eyes: Pupils are equal, round and reactive to light. Extraocular muscles intact. Ear, Nose and Throat: Canals clear. TMs normal. Normal nasal mucosa. No nasal discharge. No oral lesions. Neck: Supple, Full range of motion. No lymphadenopathy. No palpable thyroid masses. Respiratory: Clear to auscultation. Cardiovascular: S1 S2 regular. No murmurs. No carotid bruits. Gastrointestinal: Abdomen soft, non-tender, non-distended. Normal bowel sounds. No palpable masses. Neurologic: No focal neurological deficits. Symmetric patellar reflexes. Moves all extremities spontaneously. Skin: Erythematous, warm papular pustular lesions on the anterior lower legs. No active discharge. Some of them are tender to palpation. Musculoskeletal: No gross deformities. Normal range of motion. Extremities: Bilateral 1+ lower extremity edema. Intact upper and lower extremity peripheral pulses. Calves nontender. Lower extremity sensation intact bilaterally. Psychiatric: Normal mood and affect [facility] Medical History (Updated 05/25/25 @ 17:13 by KELLY Aparicio) Cellulitis Decreased leukocytes Bilateral lower extremity edema Arthritis GERD (gastroesophageal reflux disease) Anxiety Depression Opioid abuse Surgical History H/O colonoscopy History of right hip replacement History of surgery Ovarian cyst History of lumpectomy of left breast Family History Father Colon cancer Mother No problems noted. Paternal Grandmother Breast cancer Paternal Aunt No problems noted. Brother No problems noted. Brother No problems noted. Sister Cervical cancer Son Substance use disorder Son No problems noted. Social History (Updated 05/24/25 @ 12:12 by Ngoc Bullock MA) Housing: House Alcohol intake: current Alcohol intake frequency: a few times a month Patient Tobacco Use Status: Never used Tobacco e-Cigarette/Vaping Use: Currently Using Second Hand Smoke Exposure: No Substance Use Type: Marijuana service: No Current occupational status: unemployed Current occupational exposures/hazards: No Cognitive needs: No Hearing needs: No Vision needs: No Questionnaire PHQ-9 Over the last 2 weeks, how often have you been bothered by any of the following problems? 1. Little interest or pleasure in doing things: several days 2. Feeling down, depressed, or hopeless: several days 3. Trouble falling or staying asleep, or sleeping too much: not at all 4. Feeling tired or having little energy: several days 5. Poor appetite or overeating: several days 6. Feeling bad about yourself - or that you are a failure or have let yourself or your family down: several days 7. Trouble concentrating on things, such as reading the newspaper or watching television: several days 8. Moving or speaking so slowly that other people could have noticed. Or the opposite - being so fidgety or restless that you have been moving around a lot more than usual: several days 9. Thoughts that you would be better off or of hurting yourself in some way: not at all Total score: 7 Depression Screening Interpretation: Positive Depression Screening Follow-up: Existing condition Depression Screening Done: Yes 82758 - PHQ-9 Billing: Yes Source: Developed by Drs. Maverick Mercedes, Rosi Desai, Manny Cruz and colleagues, with an educational adriane from [employer] Thrive Questionnaire Date Thrive assessed: 05/24/25 I am a: Patient What is your living situation today?: I have a steady place to live Within the past 12 months, did the food you bought not last and you didn't have the money to get more?: Never true Within the past 12 months, did you worry whether your food would run out before you got money to buy more?: Never true Do you have trouble paying for medicines?: No Do you have trouble getting transportation to medical appointments?: No Do you have trouble paying your heating and electricity bill?: No Do you have trouble taking care of your child, family member or friend?: No Do you have trouble with day-to-day activities such as bathing, preparing meals, shopping, managing finances, etc.?: I choose not to answer this question Are you currently unemployed and looking for a job?: I choose not to answer this question Are you interested in more education?: No Please select the resources that you would like help with: None Currently or been in a relationship where the following occur: No concerns reported THRIVE Score: 0 AUDIT C Alcohol Use Questionnaire (AUDIT-C) 1. How often do you have a drink containing alcohol?: Monthly or less 2. How many drinks containing alcohol do you have on a typical day when you are drinking?: 1 or 2 3. How often do you have six or more drinks on one occasion?: Never Total Score: 1 AYUSH-7 AMB Questionnaire AYUSH-7 Date AYUSH - 7 assessed: 05/24/25 Feeling nervous, anxious, or on edge: 1 = Several days Not being able to stop or control worryin = Several days Worrying too much about different things: 1 = Several days Trouble relaxin = Several days Being so restless that it is hard to sit still: 0 = Not at all Becoming easily annoyed or irritable: 0 = Not at all Feeling afraid as if something awful might happen: 1 = Several days Total AYUSH-7 score (0-4 normal; 5-9 mild; 10-14 moderate; 15-21 severe): 5 Source: Developed by Drs. Maverick Mercedes, Rosi Desai, Manny Cruz and colleagues, with an educational adriane from [employer] ([employer]). AYUSH-7 Assessment Billing AYUSH-7 Assessment Tool: AYUSH-7 Assessment 15049 Physical exam (Primary Care) Vital Signs: Last Vital Signs Pulse 76 05/24/25 12:12 BP 102/62 05/24/25 12:12 Pulse Ox 95 05/24/25 12:12 Oxygen Delivery Method Room Air 05/24/25 12:12 BMI result Body Mass Index 22.3 Tobacco/Smoking Status: Tobacco use Status Tobacco use date assessed 05/24/25 05/24/25 12:19 Patient Tobacco Use Status Never used Tobacco 05/24/25 12:12 Tobacco use type 04/25/25 11:42 e-Cigarette/Vaping Use Currently Using 05/24/25 12:12 PHQ-9: PHQ-9 Score PHQ-9: Total score 7 05/24/25 12:29 Depression Screening Interpretation: Positive Depression Screening Follow-up: Existing condition Thrive Assessment: Date of Thrive Assessment Date Thrive assessed 05/24/25 05/24/25 12:03 Currently or been in a relationship where the following occur: No concerns reported Coding Level of Care Code Est Pt Level 4 (62135) Est Pt Prev Care 40-64y(77867) Diagnoses Adult general medical exam Z00.00 Bilateral lower extremity edema R60.0 Cellulitis of other specified site L03.818 Site of cellulitis: other site Additional Codes AYUSH-7 Assessment Billing - AYUSH-7 Assessment Tool: AYUSH-7 Assessment 06245 ([id number]) PHQ-9 - 25837 - PHQ-9 Billing: Yes ([id number]) Assessment & Plan Assessment & Plan (1) Adult general medical exam: Code(s): Z00.00 - Encounter for general adult medical examination without abnormal findings Category: Medical (2) Bilateral lower extremity edema: Code(s): R60.0 - Localized edema Category: Medical (3) Cellulitis: Code(s): L03.90 - Cellulitis, unspecified Category: Medical Qualifiers: Site of cellulitis: other site Qualified Code(s): L03.818 - Cellulitis of other sites Plan Patient is seen today for a routine physical. As part of this visit we reviewed the following issues, which are considered and essential part of preventative health in this age group: - Breast Cancer screening - Annual Power Chisel Operator exam - Screening for colon cancer - Blood pressure screening - Cholesterol screening - Osteoporosis prevention including calcium/vitamin D intake, weight bearing exercise & smoking cessation - Nutritional and exercise counseling - Counseling of injury prevention including fire prevention, smoke alarms and seat belt usage - Screening for depression - Prevention of and/or testing for infectious diseases - Education about skin cancer - Recommendations about immunizations - Recommendation of an eye exam - Screening for substance abuse Patient has an infected papulopustular rash on the anterior shins following sunburn. There was no material to culture on exam today. Start Bactrim 1 pill twice daily for 10 days. Take with food. Reviewed potential side effects. Recommended probiotics. She can do warm soaks and elevate the lower extremities. Check venous duplex study to rule out DVT given recent plane travel. Lungs are clear. No chest pain or shortness of breath to suggest CHF Reviewed labs. White blood cells are mildly decreased which could be due to infection. Repeat in 6-8 weeks. Warning signs warranting re-evaluation at ED reviewed with the patient. Follow up in 1 week for a rechecked. Orders: Orders US venous duplex [facility] 05/24/25 R60.0 - Localized edema Complete Blood Count Auto Diff 6 Weeks D72.819 - Decreased white blood cell count, unspecified Medications: New sulfamethoxazole-trimethoprim 800-160 mg 1 tab PO BID 20 tabs 0RF
[2025-05-24 12:12] VITALS: BP 102/62; PULSE 76; O2SAT 95; BMI 22.3
== END 2025-05-24 13:01 | disposition home or self-care (01) ==
LOC: HO.HMCFM 11:55
PROVIDERS: PCP Family Medicine; Visit Provider Physician Assistant Medical
DX: Z00.00 Encounter for general adult medical examination without abnormal findings (principal); R60.0 Localized edema; L03.818 Cellulitis of other sites

== ENCOUNTER → 2025-05-24 11:54 | Outpatient (BNVA) | payer OTHER, SELFPAY | PROVIDERS: PCP Family Medicine; Visit Provider Physician Assistant Medical | DX: Z00.00 Encounter for general adult medical examination without abnormal findings (principal); R60.0 Localized edema; L03.818 Cellulitis of other sites; Z13.31 Encounter for screening for depression; Z13.39 Encounter for screening examination for other mental health and behavioral disorders | CPT/HCPCS: 96127; 99212; 99396 ==

== ENCOUNTER 2025-05-24 14:00 | Outpatient (REF) | payer OTHER, SELFPAY ==
--- NOTE | ~2025-05-24 | US_ITS ---
EXAMINATION: US TRIPLEX LOWER EXTREMITY, BILATERAL CLINICAL INFORMATION: R60.0 - Localized edema,bilateral lower extremity edema COMPARISON: None available. TECHNIQUE: Color-flow triplex imaging with spectral analysis and compression Doppler were performed on the bilateral lower extremities. FINDINGS: Respiratory variation, normal compression and augmented flow are noted throughout the bilateral lower extremities. The visualized common femoral vein, superficial femoral vein, profunda femoral vein, popliteal vein and midcalf peroneal and posterior tibial venous segments show no evidence of deep venous thrombosis bilaterally. There is no Otoole's cyst. US/US venous duplex LE BI IMPRESSION: No evidence of deep venous thrombosis involving the bilateral lower extremities. Electronically signed by: Yrn Hernandez MD 05/24/2025 02:37 PM EDT
--- OUTSIDE RECORDS SUMMARY | 2025-05-24 14:08 | XMS_ITS | Clinical Summary ---
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
== END 2025-05-24 14:01 | disposition home or self-care (01) ==
LOC: HO.US 14:00
PROVIDERS: PCP Family Medicine; Visit Provider Physician Assistant Medical
DX: R60.0 Localized edema (principal); F11.21 Opioid dependence, in remission
CPT/HCPCS: 93970; 96372; Q9992

== ENCOUNTER → 2025-05-24 14:05 | Outpatient (BNV) | payer OTHER, SELFPAY | PROVIDERS: PCP Family Medicine; Visit Provider Radiology Diagnostic Radiology | DX: R60.0 Localized edema (principal) | CPT/HCPCS: 93970 ==

== ENCOUNTER 2025-05-24 14:34 | Outpatient (AMB) | payer OTHER, SELFPAY ==
--- NOTE | 2025-05-24 14:38 | AM.OFFVISNUR ---
Intake Visit Reasons: Injection Allergies chlorhexidine (CHLORAPREP) Allergy (Unknown, Verified 05/24/25 12:05) RASH Coding
--- NOTE | 2025-05-24 14:45 | AM.OFFVISNUR ---
Intake Visit Reasons: Injection Allergies chlorhexidine (CHLORAPREP) Allergy (Unknown, Verified 05/24/25 12:05) RASH Nursing Note Silvia is alert, oriented and presents back today for her Sublocade 100 mg after seeing her primary care physician for suspected infection from sunburn on BLE. Silvia reports that they did an ultrasound to rule out embolism and are prescribing an ABX; her provider felt that injection was safe. Silvia reported no issue with her past injection and denies any negative sx or need to bridge with oral buprenorphine. Dose reduction to 100mg this visit. Discussion was had for future weaning off Bup if and when she is comfortable with the process. Follow up appointment in 4 weeks for next injection. Wallet ID card Given. Office Meds Sublocade 100 mg/0.5 mL solution,extended release subcutaneous syringe Performing Provider: Dania Jacobs MD Performing Location: [facility] Administered by: Eula Mills RN on 05/24/25 15:08 Dose Route Admin Location Dispensed Lot Number Expiration Date [facility] Gym Manager 100 mg subcut LUQ 0.5 mL [id number] [employer] Total Dispensed Waste 0.5 mL 0 % Comments: Pt is present for 100 mg Sublocade injection, pt denies complications with previous injections and tolerated injection well. Pt educated on signs and symptoms of infection at the injection site, urged to call [facility] with any questions or concerns. Follow up appointment made in 4 weeks for next injection. 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
== END 2025-05-24 15:12 | disposition home or self-care (01) ==
LOC: HO.HCC 14:34
PROVIDERS: PCP Family Medicine
DX: F11.21 Opioid dependence, in remission (principal)

== ENCOUNTER 2025-05-31 11:16 | Outpatient (AMB) | payer OTHER, SELFPAY ==
--- NOTE | 2025-05-31 11:28 | MHC.PC.OV ---
Vital Signs 05/31/25 11:42 Height 5 ft 8 in Weight 145 lb BMI 22.0 BP 106/62 Blood Pressure Location Lt brachial Position Sitting Pulse 67 Pulse Source Pulse Oximeter Temp 97.7 F Temp Source Temporal Artery Scan Pulse Oximetry (%) 96 Oxygen Delivery Method Room Air Intake Visit Reasons: recheck legs Intake Note: Silvia presents in the office today for a recheck if her legs. Would like a refill of the Naproxen. Allergies chlorhexidine (CHLORAPREP) Allergy (Unknown, Verified 05/31/25 11:29) RASH Tobacco use date assessed: 05/31/25 Dental Screening Dental Screen Date: 05/31/25 Did you have a dental visit in the last 12 months?: Yes Did you have a dental problem in the last 6 months where you did not have access to dental care?: No Was dental information given to patient?: Patient has dentist HPI HPI Comments History of Present Illness Details This is a 65-year-old female with a past medical history of hyperlipidemia, opioid dependence, GERD, constipation and depression presenting for re-evaluation of an infection on her lower extremities. I saw her on 05/24/2025. She reported going on a cruise and getting a sunburn on her lower legs on 05/07/2025. She endorsed swelling in her lower legs and a painful, red rash that developed a week or 2 after the burn. She denied fevers or chills. She tried yyjd-jlu-rdlygxw antibiotic ointment without improvement. The patient has been taking Bactrim, and her legs are much better. There is no further discharge. There is only minimal pain of 1 of the lesions on the right wilson. This was the largest of the lesions. Continues to deny fevers or chills. She is not having side effects on the antibiotic. Due to swelling she underwent venous duplex studies which were negative for DVT. ROS: Constitutional: No fevers, chills or night sweats Respiratory: No shortness of breath, cough or sputum production. Cardiovascular: No chest pain, chest pressure or chest discomfort. No palpitations or pedal edema. Skin: See HPI Physical exam: Respiratory: Clear to auscultation. Cardiovascular: S1 S2 regular. No murmurs. Skin: Significant improvement in the appearance of the bilateral lower extremity rash. The lesions are fading, drying out and there are post anti-inflammatory salcedo. There are a few scattered remaining papular lesions. The largest lesion that was on the right upper wilson has decreased in size and there is still some surrounding erythema of this lesion. No fluctuance or discharge. Nontender to palpation. Extremities: No edema on exam today. [facility] Medical History (Updated 05/25/25 @ 17:13 by KELLY Aparicio) Cellulitis Decreased leukocytes Bilateral lower extremity edema Arthritis GERD (gastroesophageal reflux disease) Anxiety Depression Opioid abuse Surgical History H/O colonoscopy History of right hip replacement History of surgery Ovarian cyst History of lumpectomy of left breast Family History Father Colon cancer Mother No problems noted. Paternal Grandmother Breast cancer Paternal Aunt No problems noted. Brother No problems noted. Brother No problems noted. Sister Cervical cancer Son Substance use disorder Son No problems noted. Social History (Updated 05/31/25 @ 11:31 by Ngoc Bullock MA) Housing: House Alcohol intake: current Alcohol intake frequency: a few times a month Patient Tobacco Use Status: Never used Tobacco e-Cigarette/Vaping Use: Currently Using Second Hand Smoke Exposure: No Substance Use Type: Marijuana service: No Current occupational status: unemployed Current occupational exposures/hazards: No Cognitive needs: No Hearing needs: No Vision needs: No Questionnaire Thrive Questionnaire Date Thrive assessed: 10/26/24 I am a: Patient What is your living situation today?: I have a steady place to live Within the past 12 months, did the food you bought not last and you didn't have the money to get more?: Never true Within the past 12 months, did you worry whether your food would run out before you got money to buy more?: Never true Do you have trouble paying for medicines?: No Do you have trouble getting transportation to medical appointments?: No Do you have trouble paying your heating and electricity bill?: No Do you have trouble taking care of your child, family member or friend?: No Do you have trouble with day-to-day activities such as bathing, preparing meals, shopping, managing finances, etc.?: I choose not to answer this question Are you currently unemployed and looking for a job?: I choose not to answer this question Are you interested in more education?: No Please select the resources that you would like help with: None Currently or been in a relationship where the following occur: No concerns reported THRIVE Score: 0 AYUSH-7 AMB Questionnaire AYUSH-7 Date AYUSH - 7 assessed: 05/24/25 Source: Developed by Drs. Maverick Mercedes, Rosi Desai, Manny Cruz and colleagues, with an educational adriane from [employer]. Physical exam (Primary Care) Vital Signs: Last Vital Signs Temp 97.7 F 05/31/25 11:42 Pulse 67 05/31/25 11:42 BP 106/62 05/31/25 11:42 Pulse Ox 96 05/31/25 11:42 Oxygen Delivery Method Room Air 05/31/25 11:42 BMI result Body Mass Index 22.0 Tobacco/Smoking Status: Tobacco use Status Tobacco use date assessed 05/31/25 05/31/25 11:32 Patient Tobacco Use Status Never used Tobacco 05/31/25 11:32 Tobacco use type 04/25/25 11:42 e-Cigarette/Vaping Use Currently Using 05/31/25 11:32 Thrive Assessment: Date of Thrive Assessment Date Thrive assessed 10/26/24 05/31/25 11:32 Currently or been in a relationship where the following occur: No concerns reported Coding Level of Care Code Est Pt Level 3 (69712) Diagnoses Cellulitis of other specified site L03.818 Site of cellulitis: other site Assessment & Plan Assessment & Plan (1) Cellulitis: Code(s): L03.90 - Cellulitis, unspecified Category: Medical Qualifiers: Site of cellulitis: other site Qualified Code(s): L03.818 - Cellulitis of other sites Plan Interval improvement in the appearance of the rash, but given residual cellulitis on the right upper wilson I am extending the antibiotic spine additional 10 days.Take with food. Reviewed potential side effects. Recommended probiotics. She can do warm soaks and elevate the lower extremities. Warning signs warranting re-evaluation at ED reviewed with the patient. Follow up in 1 week for rechecked. Medications: Refilled sulfamethoxazole-trimethoprim 800-160 mg 1 tab PO BID 20 tabs 0RF naproxen 500 mg PO Q12H 60 tabs 3RF
[2025-05-31 11:42] VITALS: BP 106/62; PULSE 67; TEMP 36.5; O2SAT 96; BMI 22.0
--- OUTSIDE RECORDS SUMMARY | 2025-05-31 12:36 | XMS_ITS | Clinical Summary ---
Author Organization [facility] ity Address [address] [place] [address] Care Team Providers Care Stereotyper Name Role Phone Unavailable Primary Care Provider [...]
== END 2025-05-31 11:46 | disposition home or self-care (01) ==
LOC: HO.HMCFM 11:17
PROVIDERS: PCP Family Medicine; Visit Provider Physician Assistant Medical
DX: L03.818 Cellulitis of other sites (principal)

== ENCOUNTER → 2025-05-31 11:16 | Outpatient (BNVA) | payer OTHER, SELFPAY | PROVIDERS: PCP Family Medicine; Visit Provider Physician Assistant Medical | DX: L03.818 Cellulitis of other sites (principal) | CPT/HCPCS: 99212 ==

== ENCOUNTER 2025-06-21 12:49 | Outpatient (AMB) | payer OTHER, SELFPAY ==
--- NOTE | 2025-06-21 13:18 | AM.OFFVISNUR ---
Vital Signs 06/21/25 13:19 BP 106/68 Pulse 58 Pulse Oximetry (%) 97 Intake Visit Reasons: Injection Allergies chlorhexidine (CHLORAPREP) Allergy (Unknown, Verified 06/21/25 13:19) RASH Nursing Note Silvia presents today for q 4 week sublocade injection. She is alert, oriented, cooperative with care and presents with appropriate affect. This will be her second 100 mg injection and she did report some symptoms yesterday just not feeling right, not myself in which she utilized a SL strip. Will call office if symptoms persist or worsen. Follow up in 4 weeks for the next injection. Office Meds Sublocade 100 mg/0.5 mL solution,extended release subcutaneous syringe Performing Provider: Dania Jacobs MD Performing Location: [facility] Administered by: Eula Mills RN on 06/21/25 13:30 Dose Route Admin Location Dispensed Lot Number Expiration Date [facility] Cashier 100 mg subcut 0.5 mL [id number] 03/03/26 [id number] [employer] Total Dispensed Waste 0.5 mL 0 % Comments: Pt is present for 100 mg Sublocade injection, pt denies complications with previous injections and tolerated injection well. Pt educated on signs and symptoms of infection at the injection site, urged to call [facility] with any questions or concerns. Follow up appointment made in 4 weeks for next injection. 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
[2025-06-21 13:19] VITALS: BP 106/68; PULSE 58; O2SAT 97
--- OUTSIDE RECORDS SUMMARY | 2025-06-21 14:52 | XMS_ITS | Clinical Summary ---
Author Organization [facility] ity Address [address] [place] [address] Care Team Providers Care Manufacturing Laborer Name Role Phone Unavailable Primary Care Provider [...] 01/20/2012 Zoster Vaccines (1 of 2) 01/20/2012 Depression Screening 10/04/2024 COVID-19 Vaccine (1 - 2023-2 5 season) 2025 Influenza Vaccine (#1) 2025 RSV Immunization Adult [...]
== END 2025-06-21 13:41 | disposition home or self-care (01) ==
LOC: HO.HCC 12:49
PROVIDERS: PCP Family Medicine
DX: F11.21 Opioid dependence, in remission (principal)

== ENCOUNTER → 2025-06-21 12:49 | Outpatient (BNVA) | payer OTHER, SELFPAY | PROVIDERS: PCP Family Medicine | DX: F11.21 Opioid dependence, in remission (principal) | CPT/HCPCS: 96372; Q9992 ==

== ENCOUNTER 2025-07-17 13:05 | Outpatient (AMB) | payer OTHER, SELFPAY ==
--- NOTE | 2025-07-17 13:13 | AM.OFFVISNUR ---
Vital Signs 07/17/25 13:14 BP 116/70 Intake Visit Reasons: Injection Allergies chlorhexidine (CHLORAPREP) Allergy (Unknown, Verified 07/17/25 13:14) RASH Nursing Note Silvia presents today for her Sublocade injection. She is alert, oriented, cooperative with care and presents with appropriate affect. Silvia reported that she almost took a sublingual the other day, bit I didn't, I knew I was coming here today. Silvia does have SL if necessary. Sleep and appetite are good, working in [place] over the weekend. Follow up in 4 weeks for next injection. Office Meds Sublocade 100 mg/0.5 mL solution,extended release subcutaneous syringe Performing Provider: Dania Jacobs MD Performing Location: [facility] Administered by: Eula Mills RN on 07/17/25 13:35 Dose Route Admin Location Dispensed Lot Number Expiration Date [facility] Gold Min[employer] 100 mg subcut RLQ 0.5 mL [id number] 05/03/26 [address]-4 [employer] Total Dispensed Waste 0.5 mL 0 % Comments: Pt is present for 100 mg Sublocade injection, pt denies complications with previous injections and tolerated injection well. Pt educated on signs and symptoms of infection at the injection site, urged to call [facility] with any questions or concerns. Follow up appointment made in 4 weeks for next injection. 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
[2025-07-17 13:14] VITALS: BP 116/70
--- OUTSIDE RECORDS SUMMARY | 2025-07-17 15:48 | XMS_ITS | Clinical Summary ---
Author Organization [facility] ity Address [address] [place] [address] Care Team Providers Care Detective Captain Name Role Phone Unavailable Primary Care Provider [...]
== END 2025-07-17 13:39 | disposition home or self-care (01) ==
LOC: HO.HCC 13:05
PROVIDERS: PCP Family Medicine
DX: F11.21 Opioid dependence, in remission (principal)

== ENCOUNTER → 2025-07-17 13:05 | Outpatient (BNVA) | payer OTHER, SELFPAY | PROVIDERS: PCP Family Medicine | DX: F11.21 Opioid dependence, in remission (principal) | CPT/HCPCS: 96372; Q9992 ==

== ENCOUNTER 2025-08-15 11:24 | Outpatient (AMB) | payer OTHER, SELFPAY ==
--- NOTE | 2025-08-15 09:29 | AM.OFFVISNUR ---
Vital Signs 08/15/25 11:28 Pulse 88 Pulse Oximetry (%) 94 Intake Visit Reasons: Injection Allergies chlorhexidine (CHLORAPREP) Allergy (Unknown, Verified 08/15/25 11:29) RASH Nursing Note Silvia presents today for her Sublocade 100 mg injection. She is alert, oriented, cooperative with care and presents with appropriate affect. Silvia reports no negative symptoms in relation to to withdrawal; no changes reported. Follow up in 4 weeks for the next injection. Office Meds Sublocade 100 mg/0.5 mL solution,extended release subcutaneous syringe Performing Provider: Dania Jacobs MD Performing Location: [facility] Administered by: Eula Mills RN on 08/15/25 11:55 Dose Route Admin Location Dispensed Lot Number Expiration Date [facility] [place] [employer] 100 mg subcut LUQ 0.5 mL [id number] 05/03/26 [address]-7 [employer] Total Dispensed Waste 0.5 mL 0 % Comments: Pt is present for 100 mg Sublocade injection, pt denies complications with previous injections and tolerated injection well. Pt educated on signs and symptoms of infection at the injection site, urged to call [facility] with any questions or concerns. Follow up appointment made in 4 weeks for next injection. 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
[2025-08-15 11:28] VITALS: PULSE 88; O2SAT 94
--- OUTSIDE RECORDS SUMMARY | 2025-08-15 14:10 | XMS_ITS | Clinical Summary ---
Author Organization [facility] ity Address [address] [place] [address] Care Team Providers Care Ent Nurse Name Role Phone Unavailable Primary Care Provider [...] Depression Screening 10/04/2024 COVID-19 Vaccine (1 - 2024-2 6 season) 2025 Influenza Vaccine (#1) 2025 RSV [...]
== END 2025-08-15 12:53 | disposition home or self-care (01) ==
LOC: HO.HCC 11:24
PROVIDERS: PCP Family Medicine
DX: F11.21 Opioid dependence, in remission (principal)

== ENCOUNTER → 2025-08-15 11:24 | Outpatient (BNVA) | payer OTHER, SELFPAY | PROVIDERS: PCP Family Medicine | DX: F11.21 Opioid dependence, in remission (principal) | CPT/HCPCS: 96372; Q9992 ==

== ENCOUNTER 2025-09-13 13:03 | Outpatient (AMB) | payer OTHER, SELFPAY ==
--- NOTE | 2025-09-13 13:03 | AM.OFFVISNUR ---
Intake Visit Reasons: Injection Allergies chlorhexidine (CHLORAPREP) Allergy (Unknown, Verified 08/15/25 11:29) RASH Nursing Note Silvia presents today for her Sublocade 100 mg injection. She is alert, oriented, cooperative with care and presents with appropriate affect. Silvia reports no negative symptoms between injections. Silvia enjoyed Thanksgiving with family and is looking forward to going to dinner at a family members house for Xmas. Follow-up in 4 weeks for the next injection. Office Meds Sublocade 100 mg/0.5 mL solution,extended release subcutaneous syringe Performing Provider: Dania Jacobs MD Performing Location: [facility] Administered by: Eula Mills RN on 09/13/25 13:46 Dose Route Admin Location Dispensed Lot Number Expiration Date [facility] [employer] 100 mg subcut LLQ 0.5 mL [id number] 05/03/26 [address]-5 [employer] Total Dispensed Waste 0.5 mL 0 % Comments: Pt is present for 100 mg Sublocade injection, pt denies complications with previous injections and tolerated injection well. Pt educated on signs and symptoms of infection at the injection site, urged to call [facility] with any questions or concerns, pt verbalized understanding. Follow up appointment made in 4 weeks for next injection. 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
--- OUTSIDE RECORDS SUMMARY | 2025-09-13 19:42 | XMS_ITS | Clinical Summary ---
Author Organization [facility] ity Address [address] [place] [address] Care Team Providers Care Director Information Name Role Phone Unavailable Primary Care Provider [...]
== END 2025-09-13 13:48 | disposition home or self-care (01) ==
LOC: HO.HCC 13:03
PROVIDERS: PCP Family Medicine
DX: F11.21 Opioid dependence, in remission (principal)

== ENCOUNTER → 2025-09-13 13:03 | Outpatient (BNVA) | payer OTHER, SELFPAY | PROVIDERS: PCP Family Medicine | DX: F11.21 Opioid dependence, in remission (principal) | CPT/HCPCS: 96372; Q9992 ==